=== PATIENT | female | born 1945 | race Caucasian/White ===

== ENCOUNTER 2017-05-14 21:24 | Emergency (ER) | payer OTHER, BC ==
[2017-05-14 21:59] VITALS: TEMP 97.5; BMI 28.2
--- NOTE | 2017-05-14 22:01 | PDOC ---
History of Present Illness - General History Source: Patient Exam Limitations: No Limitations - History of Present Illness Initial Comments: 05/14/17 22:53 The patient is a 71 year old female with no significant PMH who presents to the emergency department with generalized malaise, dizziness, nausea, and abdominal pressure radiating to her chest. The patient reports dizziness when sitting and lying back flat. The patient states she woke up from her sleep with a 10/10 pressure-like abdominal pain that radiates to her chest. The patient states she had left-overs and some rice for dinner. The patient reports her last bowel movement was earlier today. The patient denies chest pain, shortness of breath, headache and dizziness. Denies fever, chills, vomit, diarrhea and constipation. Denies dysuria, frequency, urgency and hematuria. Allergies: Sulfa Past surgical history: appendectomy, cholecystectomy Social history: No reported alcohol, cigarette, or drug use. <Missy Flynn - Last Filed: 05/14/17 23:47> <Sri Turpin - Last Filed: 05/15/17 07:06> - General Chief Complaint: Chest Pain Stated Complaint: STOMACH PROBLEM Time Seen by Provider: 05/14/17 21:59 Past History <Missy Flynn - Last Filed: 05/14/17 23:47> - Past Medical History Anemia: Yes Hypercholesterolemia: Yes Thyroid Disease: Yes (hypothyroid) - Surgical History Appendectomy: Yes (40yrs ago) Cholecystectomy: Yes (18 yrs ago) Orthopedic Surgery: Yes (pins left shoulder/othroscopic surgery right shoulder/ bunions dulce ft) - Suicide/Smoking/Psychosocial Hx Smoking History: Never smoked Hx Alcohol Use: Yes (1 glass wine nightly) Drug/Substance Use Hx: No <rSi Turpin - Last Filed: 05/15/17 07:06> - Past Medical History Allergies/Adverse Reactions: Allergies Allergy/AdvReac Type Severity Reaction Status Date / Time Sulfa (Sulfonamide Allergy Mild Rash Verified 01/27/12 15:26 Antibiotics) Home Medications: Ambulatory Orders Levothyroxine [Synthroid -] 50 mcg PO DAILY 01/27/12 Simvastatin 10 mg PO 01/27/12 Ciprofloxacin [Cipro] 500 mg PO BID #10 tablet 01/31/12 Metronidazole [Flagyl] 500 mg PO TID #28 tablet 01/31/12 Psyllium Seed [Metamucil] 1 each PO TID #0 packet 01/31/12 Meclizine HCl [Antivert -] 25 mg PO QID #28 tablet 05/15/17 Review of Systems - Review of Systems Able to Perform ROS?: Yes Comments:: 05/14/17 22:55 GENERAL/CONSTITUTIONAL: (+) Generalized malaise. No fever or chills. HEAD, EYES, EARS, NOSE AND THROAT: No change in vision. No ear pain or discharge. No sore throat. CARDIOVASCULAR: No chest pain or shortness of breath. RESPIRATORY: No cough, wheezing, or hemoptysis. GASTROINTESTINAL: (+) Abdominal pressure radiating to her chest.(+) Nausea. No vomiting, diarrhea or constipation. GENITOURINARY: No dysuria, frequency, or change in urination. MUSCULOSKELETAL: No joint or muscle swelling or pain. No neck or back pain. SKIN: No rash NEUROLOGIC: (+) Dizzy. No headache, loss of consciousness, or change in strength /sensation. ENDOCRINE: No increased thirst. No abnormal weight change. HEMATOLOGIC/LYMPHATIC: No anemia, easy bleeding, or history of blood clots. ALLERGIC/IMMUNOLOGIC: No hives or skin allergy. <Missy Flynn - Last Filed: 05/14/17 23:47> *Physical Exam - Vital Signs Last Vital Signs Temp Pulse Resp BP Pulse Ox 97.5 F L 84 16 152/85 99 05/14/17 21:56 05/14/17 21:56 05/14/17 21:56 05/14/17 21:56 05/14/17 21:56 - Physical Exam Comments: 05/14/17 22:56 GENERAL: Awake, alert, and fully oriented, in no acute distress HEAD: No signs of trauma EYES: PERRLA, EOMI, sclera anicteric, conjunctiva clear ENT: Auricles normal inspection, hearing grossly normal, nares patent, oropharynx clear without exudates. Moist mucosa NECK: Normal ROM, supple, no lymphadenopathy, JVD, or masses LUNGS: Breath sounds equal, clear to auscultation bilaterally. No wheezes, and no crackles HEART: Regular rate and rhythm, normal S1 and S2, no murmurs, rubs or gallops ABDOMEN: (+) Distended, gurgling. Soft, nontender, normoactive bowel sounds. No guarding, no rebound. No masses EXTREMITIES: Normal range of motion, no edema. No clubbing or cyanosis. No cords , erythema, or tenderness NEUROLOGICAL: Cranial nerves II through XII grossly intact. Normal speech, normal gait SKIN: Warm, Dry, normal turgor, no rashes or lesions noted. <Missy Flynn - Last Filed: 05/14/17 23:47> - Vital Signs Last Vital Signs Temp Pulse Resp BP Pulse Ox 97.5 F L 84 16 152/85 99 05/14/17 21:56 05/14/17 21:56 05/14/17 21:56 05/14/17 21:56 05/14/17 21:56 <Sri Turpin - Last Filed: 05/15/17 07:06> Heart Score/ECG Review #1 05/14/17 23:47 EKG performed at [22:07] demonstrates rate of [79], Sinus rhythm with short FL. Otherwise normal ECG. <Missy Flynn - Last Filed: 05/14/17 23:47> ED Treatment Course - LABORATORY CBC & Chemistry Diagram: 05/14/17 22:28 05/14/17 22:28 - Medications Given in the ED: ED Medications Discontinued Medications Generic Name Dose Route Start Last Admin Trade Name Freq PRN Reason Stop Dose Admin Meclizine HCl 50 mg 05/14/17 22:24 05/14/17 22:41 Antivert - PO 05/14/17 22:25 50 mg ONCE ONE Administration Metoclopramide HCl 10 mg 05/14/17 22:23 05/14/17 22:40 Reglan Injection - IVPUSH 05/14/17 22:24 10 mg ONCE ONE Administration Sodium Chloride 500 ml 05/14/17 22:24 05/14/17 22:41 Normal Saline - IV 05/14/17 22:25 500 ml ONCE ONE Administration <Missy Flynn - Last Filed: 05/14/17 23:47> - LABORATORY CBC & Chemistry Diagram: 05/14/17 22:28 05/14/17 22:28 <Sri Turpin - Last Filed: 05/15/17 07:06> Medical Decision Making - Medical Decision Making 05/14/17 22:35 Pt comes with malaise and nausea and dizziness and looking and feeling unwell. Pt comes with multiple complaints. EKG is NSR. Vitals are normal and she is afebrile. Pt has no vomtiing and no diarrhea. She states that she is bloated. 05/14/17 22:36 Pt will have labs and full workup; I am considering gastroenteritis; cardiac; vertigo; obstruction. 05/15/17 01:30 Pt is feeling better 05/15/17 01:57 Pt's CXR and FUA XR are normal 05/15/17 07:05 UA normal; pt will be sent home with meclizine. She is feeling better. This is likely a viral syndrome <Sri Turpin - Last Filed: 05/15/17 07:06> *DC/Admit/Observation/Transfer - Attestations Scribe Attestion: 05/14/17 22:58 Documentation prepared by Missy Flynn, acting as manager medical affairs for Sri Turpin MD. <Missy Flynn - Last Filed: 05/14/17 23:47> - Discharge Dispostion Admit: No <Sri Turpin - Last Filed: 05/15/17 07:06> Diagnosis at time of Disposition: Viral illness, Vertigo - Discharge Dispostion Disposition: HOME Condition at time of disposition: Improved - Prescriptions Prescriptions: Meclizine HCl [Antivert -] 25 mg PO QID #28 tablet - Patient Instructions Printed Discharge Instructions: Vertigo, DI for Viral Gastroenteritis -- Adult
[2017-05-14] MEDS ORDERED: METOCLOPRAMIDE HCL INJECTION 10 MG/2 ML VIAL IVPUSH ONE (22:23)
[2017-05-14] MEDS ORDERED: MECLIZINE HCL 25 MG TABLET (FP) PO ONE (22:24)
[2017-05-14] MEDS ORDERED: SODIUM CHLORIDE 0.9% 500 ML INFUS.BAG IV ONE (22:24)
[2017-05-14] MEDS ORDERED: METOCLOPRAMIDE HCL INJECTION 10 MG/2 ML VIAL ONE (22:30)
[2017-05-14] MEDS ORDERED: MECLIZINE HCL 25 MG TABLET (FP) ONE (22:30)
[2017-05-14 22:53] LABS: BASO % 0.2 % (0-2.0); EOS # 0.1 # (0-4.5); INR 1.01 (0.82-1.09); LYMPH # 1.9 (8-40); MCH 30.3 pg (25.7-33.7); MCHC 33.8 g/dl (32.0-36.0); MEAN CELL VOLUME 89.6 fl (80-96); MEAN PLT VOLUME 8.1 fl (7.5-11.1); MONO # 0.9 # (3.8-10.2); NEUT # 11.8 # (42.8-82.8); NEUT % 79.8 % (42.8-82.8); PLATELET COUNT 271 K/MM3 (134-434); PROTHROMBIN TIME (PATIENT) 11.4 SEC (9.98-11.88); RDW 12.3 % (11.6-15.6); WHITE BLOOD COUNT 14.7 K/mm3 (4.0-10.0)
[2017-05-14 23:04] LABS: ALBUMIN 4.2 g/dl (3.4-5.0); AMYLASE 53 U/L (25-115); ANION GAP 9 (8-16); CALCIUM 8.6 mg/dL (8.5-10.1); CO2 24 mmol/L (21-32); CREATININE 0.8 mg/dL (0.55-1.02); GLUCOSE,RANDOM 146 mg/dL (74-106); SGOT/AST 21 U/L (15-37); SGPT/ALT 31 U/L (12-78)
[2017-05-14 23:08] LABS: ALK PHOS 90 U/L (45-117); BILIRUBIN,TOTAL 0.6 mg/dL (0.2-1.0); CPK 102 IU/L (26-192); TOT PROT 7.6 g/dl (6.4-8.2); TROPONIN I < 0.02 ng/ml (0.00-0.05)
[2017-05-15 01:53] VITALS: BP 112/62; PULSE 76
[2017-05-15 02:41] LABS: URINE APPEARANCE CLEAR; URINE BILIRUBIN NEGATIVE (NEGATIVE); URINE BLOOD 1+ (NEGATIVE); URINE COLOR YELLOW; URINE GLUCOSE (UA) NEGATIVE (NEGATIVE); URINE KETONE NEGATIVE (NEGATIVE); URINE NITRITE NEGATIVE (NEGATIVE); URINE PROTEIN NEGATIVE (NEGATIVE); URINE UROBILINOGEN NEGATIVE mg/dL (0.2-1.0)
[2017-05-15 02:51] LABS: URINE LEUK ESTERASE 2+ (NEGATIVE)
[2017-05-15 02:55] LABS: URINE MUCUS RARE; URINE RBC 4 /hpf (0-3); URINE WBC 3 /hpf (3-5)
--- NOTE | 2017-05-15 08:31 | PDOC ---
Patient Follow-up (Call Back) - Post ED Follow - Up Condition at time of discharge: Improved Disposition at time of original discharge: HOME Reason for Call Back: Radiology (Received phone call from Dr. Pérez radiologist who notes distended small bowel loops which would which could represent a partial small bowel obstruction versus a small bowel obstruction. He is recommending CT for further evaluation. I have called the patient at home who states did have a normal bowel movement upon arriving back home. I did urge the patient to come in for evaluation. Receive firm call from Dr. Pérez radiologist who notes distended small bowel loops which would which could represent a partial small bowel obstruction versus a small bowel obstruction. He is recommending CT for further evaluation. I have called the patient at home who states did have a normal bowel movement upon arriving back home. I did urge the patient to come in for evaluation.)
[2017-05-15 14:13] LABS: URINE LEUK ESTERASE Negative (NEGATIVE)
--- NOTE | 2017-05-15 17:12 | EKG ---
Test Reason : Blood Pressure : / mmHG Vent. Rate : 079 BPM Atrial Rate : 079 BPM P-R Int : 110 ms QRS Dur : 084 ms QT Int : 400 ms P-R-T Axes : 016 044 064 degrees QTc Int : 458 ms SINUS RHYTHM WITH BORDERLINE SHORT NM OTHERWISE NORMAL ECG WHEN COMPARED WITH ECG OF 31-JAN-2012 08:50, NO SIGNIFICANT CHANGE WAS FOUND Confirmed by DANIEL ORDONEZ MD ([id number]) on 05/15/2017 5:12:31 PM Referred By: Confirmed By:DANIEL ORDONEZ MD
== END 2017-05-15 02:58 | disposition home or self-care (01) ==
LOC: JER 21:24
PROC: 3E033GC Introduction of Other Therapeutic Substance into Peripheral Vein, Percutaneous Approach (ICD-10-PCS; principal; 2017-05-14)
DX: A08.4 Viral intestinal infection, unspecified (principal); B97.89 Other viral agents as the cause of diseases classified elsewhere; R42 Dizziness and giddiness; D64.9 Anemia, unspecified; E03.9 Hypothyroidism, unspecified; E78.00 Pure hypercholesterolemia, unspecified
CPT/HCPCS: 36415; 71020-TC; 74020-TC; 80053; 81003; 81015; 82150; 82550; 83690; 84443; 84484; 85025; 85610; 93005; 93010; 99283-25

== ENCOUNTER 2017-05-15 10:10 | Observation (INO) | payer OTHER, BC ==
[2017-05-15 10:18] VITALS: BMI 28.0
--- NOTE | 2017-05-15 11:05 | PDOC ---
Attending Attestation - Resident Resident Name: Alejandro Vázquez - ED Attending Attestation I have performed the following: I have examined & evaluated the patient, The case was reviewed & discussed with the resident, I agree w/resident's findings & plan, Exceptions are as noted - HPI HPI: 05/15/17 11:03 71-year-old female with no severe past medical history, past surgical history significant for partial hysterectomy and cholecystectomy presents for revisit for further imaging of abdominal pain. Patient symptoms began with abdominal pain and vomiting last night, was evaluated and noted to have white count of 14.7, x-ray preliminarily read as normal, the patient was feeling better and went home. X-ray reread by radiology as distended loops which could be consistent with small bowel obstruction, patient was called and was not necessarily feeling better and urged to return to the emergency department. The patient did have a normal bowel movement around 3:30 AM, reports some persistent abdominal pain. - Physicial Exam PE: 05/15/17 11:04 Afebrile, vital signs stable. No jaundice or pallor Abdomen is soft and nondistended. Tender with guarding in the left abdomen radiating to the epigastric region, there is rebound that radiates to the left abdomen. Bowel sounds are normal to decreased. - Medical Decision Making 05/15/17 11:05 Patient seen and evaluated with the resident. I agree with the overall evaluation, assessment, and management with the following summary of visit: 71-year-old female with history of abdominal surgeries presents with abdominal pain and vomiting, localizing findings with some peritonitis in the left abdomen. Question colitis versus diverticulitis, rule out obstruction. Repeat labs, trend white count Declines pain control IV fluids CT of the abdomen and pelvis with contrast Reassess
--- NOTE | 2017-05-15 11:14 | PDOC ---
History of Present Illness <Lora Mason - Last Filed: 05/15/17 14:41> - General History Source: Patient Exam Limitations: No Limitations - History of Present Illness Initial Comments: 05/15/17 11:07 The patient is a 71F with a PMH of diverticula complicated by diverticulitis 6 years ago, HLD, hypothyroidism, who presents to the ER after having a flat/ upright abdominal XR read as possible SBO. She is here for a CT scan for more definitive findings. She is complaining of abdominal pain but denies any other pain including CP, SOB, nausea, vomiting, diarrhea, constipation. <Alejandro Vázquez - Last Filed: 05/15/17 15:11> - General Chief Complaint: Pain Stated Complaint: ABD PAIN Time Seen by Provider: 05/15/17 10:30 Past History <Lora Mason - Last Filed: 05/15/17 14:41> - Past Medical History Anemia: Yes COPD: No Hypercholesterolemia: Yes Thyroid Disease: Yes (hypothyroid) - Surgical History Appendectomy: Yes (40yrs ago) Cholecystectomy: Yes (18 yrs ago) Orthopedic Surgery: Yes (pins left shoulder/othroscopic surgery right shoulder/ bunions dulce ft) - Suicide/Smoking/Psychosocial Hx Smoking History: Never smoked Have you smoked in the past 12 months: No Information on smoking cessation initiated: No Hx Alcohol Use: No Drug/Substance Use Hx: No <Alejandro Vázquez - Last Filed: 05/15/17 15:11> - Past Medical History Allergies/Adverse Reactions: Allergies Allergy/AdvReac Type Severity Reaction Status Date / Time Sulfa (Sulfonamide Allergy Mild Rash Verified 05/15/17 10:16 Antibiotics) Home Medications: Ambulatory Orders Levothyroxine [Synthroid -] 50 mcg PO DAILY 01/27/12 Simvastatin 20 mg PO DAILY 01/27/12 Psyllium Seed [Metamucil] 1 each PO TID #0 packet 01/31/12 Naproxen 500 mg PO BID 05/15/17 Review of Systems - Review of Systems Able to Perform ROS?: Yes Comments:: 05/15/17 11:10 GENERAL/CONSTITUTIONAL: No fever or chills. No weakness. HEAD, EYES, EARS, NOSE AND THROAT: No change in vision. No ear pain or discharge. No sore throat. GASTROINTESTINAL: Positive for abdominal pain. No nausea, vomiting, diarrhea, or constipation. GENITOURINARY: No dysuria, frequency, hematuria, or change in urination. CARDIOVASCULAR: No chest pain, palpitations, or lightheadedness. RESPIRATORY: No cough, wheezing, shortness of breath, or hemoptysis. MUSCULOSKELETAL: No joint or muscle swelling or pain. No neck or back pain. SKIN: No rash or lesions. NEUROLOGIC: No headache, numbness, tingling, weakness, loss of consciousness, or change in strength/sensation. ENDOCRINE: No increased thirst. No abnormal weight change. HEMATOLOGIC/LYMPHATIC: No anemia, easy bleeding, or history of blood clots. ALLERGIC/IMMUNOLOGIC: No hives or skin allergy. Is the patient limited Indonesian proficient: No <Alejandro Vázquez - Last Filed: 05/15/17 15:11> *Physical Exam - Vital Signs Last Vital Signs Temp Pulse Resp BP Pulse Ox 97.5 F L 76 18 134/72 100 05/15/17 10:15 05/15/17 10:15 05/15/17 10:15 05/15/17 10:15 05/15/17 10:15 <Lora Mason - Last Filed: 05/15/17 14:41> - Vital Signs Last Vital Signs Temp Pulse Resp BP Pulse Ox 97.5 F L 76 18 134/72 100 05/15/17 10:15 05/15/17 10:15 05/15/17 10:15 05/15/17 10:15 05/15/17 10:15 - Physical Exam Comments: 05/15/17 11:11 GENERAL: Well developed, well nourished. Awake and alert. No acute distress. HEENT: Normocephalic, atraumatic. Hearing grossly normal. Moist mucous membranes. PERRLA, EOMI. No conjunctival pallor. Sclera are non-icteric. Oropharynx is clear. NECK: Supple. Full ROM. No JVD. Carotid pulses 2+ and symmetric, without bruits. No thyromegaly. No lymphadenopathy. CARDIOVASCULAR: Regular rate and rhythm. No murmurs, rubs, or gallops. Distal pulses are 2+ and symmetric. PULMONARY: No evidence of respiratory distress. Lungs clear to auscultation bilaterally. No wheezing, rales or rhonchi. ABDOMINAL: Tenderness to palpation in epigastric region, and diffusely in lower quadrants. Soft. Non-distended. No rebound or guarding. No organomegaly. GENITOURINARY: No CVA tenderness bilaterally. MUSCULOSKELETAL: Normal range of motion at all joints. No bony deformities or tenderness. EXTREMITIES: No cyanosis. No clubbing. No edema. No calf tenderness. SKIN: Warm and dry. Normal capillary refill. No rashes. No jaundice. NEUROLOGICAL: Alert, awake, appropriate. Cranial nerves 2-12 intact. Normal speech. PSYCHIATRIC: Cooperative. Good eye contact. Appropriate mood and affect. <Alejandro Vázquez - Last Filed: 05/15/17 15:11> ED Treatment Course - LABORATORY CBC & Chemistry Diagram: 05/15/17 11:10 05/15/17 11:20 - ADDITIONAL ORDERS Additional order review: Laboratory Results 05/15/17 11:20 Sodium 141 Potassium 4.3 D Chloride 107 Carbon Dioxide 26 Anion Gap 8 BUN 18 Creatinine 0.6 D Creat Clearance w eGFR > 60 Random Glucose 105 D Calcium 8.6 Total Bilirubin 0.5 AST 17 ALT 30 Alkaline Phosphatase 82 Total Protein 6.9 Albumin 3.8 Lipase 175 05/15/17 11:10 RBC 4.43 MCV 90.1 MCHC 32.9 RDW 12.4 MPV 7.8 Neutrophils % 64.5 Lymphocytes % 27.3 D Monocytes % 6.3 Eosinophils % 1.5 Basophils % 0.4 - Medications Given in the ED: ED Medications Discontinued Medications Generic Name Dose Route Start Last Admin Trade Name Freq PRN Reason Stop Dose Admin Sodium Chloride 1,000 ml 05/15/17 11:21 05/15/17 11:32 Normal Saline - IV 05/15/17 11:22 1,000 ml ONCE ONE Administration <Lora Mason - Last Filed: 05/15/17 14:41> - LABORATORY CBC & Chemistry Diagram: 05/15/17 11:10 05/15/17 11:20 - RADIOLOGY Radiology Studies Ordered: Category Date Time Status ABDOMEN & PELVIS CT WITH CONTR [CT] Stat CT Scan 05/15/17 11:03 Ordered <Alejandro Vázquez - Last Filed: 05/15/17 15:11> Medical Decision Making - Medical Decision Making 05/15/17 14:41 Dr. Pradeep Brooks was paged and notified via phone service. <Lora Mason - Last Filed: 05/15/17 14:41> - Medical Decision Making 05/15/17 13:59 The patient is a 71F with no PMH who presents to the ED for f/u on abd XR. CT shows: In the left lower quadrant there is mild distention of the proximal jejunum. This extends through the mid jejunum and on image #114 of the axial images there is moderate mural thickening of the mid jejunum and in this level there is either thickened evga or mass or even partial intussusception. There is no evidence of complete small bowel obstruction but a partial or early small bowel obstruction should be considered An inflammatory or infectious etiology can mimic this finding. Patient states she is feeling better and passing gas. Will add GI referral. 05/15/17 14:05 CT scan results discussed with attending and patients. Will admit patient to inpatient unit for GI consultation and workup. 05/15/17 15:11 Patient signed out to Dr. Fallon, hospitalist service. <Alejandro Vázquez - Last Filed: 05/15/17 15:11> *DC/Admit/Observation/Transfer <Lora Mason - Last Filed: 05/15/17 14:41> - Discharge Dispostion Admit: Yes <Alejandro Vázquez - Last Filed: 05/15/17 15:11> Diagnosis at time of Disposition: Small bowel obstruction due to adhesions - Discharge Dispostion Condition at time of disposition: Stable
[2017-05-15] MEDS ORDERED: SODIUM CHLORIDE 0.9% 1000 ML INFUS.BAG IV ONE (11:21)
[2017-05-15 11:42] LABS: BASO % 0.4 % (0-2.0); EOS # 0.1 # (0-4.5); EOS % 1.5 % (0-4.5); LYMPH # 2.3 (8-40); MCH 29.6 pg (25.7-33.7); MCHC 32.9 g/dl (32.0-36.0); MEAN CELL VOLUME 90.1 fl (80-96); MEAN PLT VOLUME 7.8 fl (7.5-11.1); MONO # 0.5 # (3.8-10.2); NEUT # 5.4 # (42.8-82.8); NEUT % 64.5 % (42.8-82.8); PLATELET COUNT 252 K/MM3 (134-434); RDW 12.4 % (11.6-15.6); WHITE BLOOD COUNT 8.3 K/mm3 (4.0-10.0)
[2017-05-15 12:07] LABS: ALBUMIN 3.8 g/dl (3.4-5.0); ALK PHOS 82 U/L (45-117); ANION GAP 8 (8-16); BILIRUBIN,TOTAL 0.5 mg/dL (0.2-1.0); CALCIUM 8.6 mg/dL (8.5-10.1); CO2 26 mmol/L (21-32); CREATININE 0.6 mg/dL (0.55-1.02); GLUCOSE,RANDOM 105 mg/dL (74-106); SGOT/AST 17 U/L (15-37); SGPT/ALT 30 U/L (12-78); TOT PROT 6.9 g/dl (6.4-8.2)
--- NOTE | 2017-05-15 15:06 | HP ---
CHIEF COMPLAINT: PCP: Dr. Brooks HISTORY OF PRESENT ILLNESS: Patient is a 71 year old female returned to the ED after she was asked to come back for evaluation of the abdominal pain with abdominal CT. Patient visited ED yesterday for abdominal pain and vertigo. She was discharged home from the ED after workup and treatment with Meclizine for dizziness. Today , radiologist (Dr. Pérez) called the ED physician mentioning that distended small bowel loops was noted on abdominal x-ray which could represent a partial small bowel obstruction versus a small bowel obstruction. Hence, patient was asked to come back to the ED for Abdominal CT and further evaluation. Patient mentions that she still has abdominal pain mostly located in the LLQ, cramping in nature, 5-6/10 in intensity, non radiating, associated with nausea but no vomiting. After she returned home from ED last night, she moved her bowel once. Has been passing flatus. Denies chest pain, sob, cough, palpitation, fever, chills, rigors, sweating. Bladder habit normal. Sleep/Appetite normal prior the illness. Last colonoscopy 4 years ago. Next colonoscopy to be done in May, 2017, as per her GI. ER course was notable for: (1) Afebrile, hemodynamically stable, no leukocytosis. (2) Abdominal/Pelvis CT: ? early/partial SBO vs intussuception (3) IV fluids Recent Travel: None PAST MEDICAL HISTORY: Hyperlipidemia, Hypothyroidism, diverticulitis PAST SURGICAL HISTORY: Appendectomy, cholecystectomy, partial hysterectomy, bladder sling. Social History: Smoking: Denies Alcohol: Drinks 1 glass of wine daily Drugs: Denies Family History: Mother of gallbladder carcinoma. Allergies Sulfa (Sulfonamide Antibiotics) Allergy (Mild, Verified 05/15/17 10:16) Rash HOME MEDICATIONS: Home Medications Medication Instructions Recorded Levothyroxine [Synthroid -] 50 mcg PO DAILY 01/27/12 Simvastatin 20 mg PO DAILY 01/27/12 Psyllium Seed [Metamucil] 1 each PO TID #0 packet 01/31/12 Naproxen 500 mg PO BID 05/15/17 REVIEW OF SYSTEMS CONSTITUTIONAL: Absent: fever, chills, diaphoresis, generalized weakness, malaise, loss of appetite, weight change HEENT: Absent: rhinorrhea, nasal congestion, throat pain, throat swelling, difficulty swallowing, mouth swelling, ear pain, eye pain, visual changes CARDIOVASCULAR: Absent: chest pain, syncope, palpitations, irregular heart rate, lightheadedness , peripheral edema RESPIRATORY: Absent: cough, shortness of breath, dyspnea with exertion, orthopnea, wheezing, stridor, hemoptysis GASTROINTESTINAL: Present: abdominal pain, nausea Absent: abdominal distension, vomiting, diarrhea, constipation, melena, hematochezia GENITOURINARY: Absent: dysuria, frequency, urgency, hesitancy, hematuria, flank pain, genital pain MUSCULOSKELETAL: Absent: myalgia, arthralgia, joint swelling, back pain, neck pain SKIN: Absent: rash, itching, pallor HEMATOLOGIC/IMMUNOLOGIC: Absent: easy bleeding, easy bruising, lymphadenopathy, frequent infections ENDOCRINE: Absent: unexplained weight gain, unexplained weight loss, heat intolerance, cold intolerance NEUROLOGIC: Absent: headache, focal weakness or paresthesias, dizziness, unsteady gait, seizure, mental status changes, bladder or bowel incontinence PSYCHIATRIC: Absent: anxiety, depression, suicidal or homicidal ideation, hallucinations. PHYSICAL EXAMINATION Vital Signs - 24 hr 05/15/17 10:15 Temperature 97.5 F L Pulse Rate 76 Respiratory 18 Rate Blood Pressure 134/72 O2 Sat by Pulse 100 Oximetry (%) GENERAL: Elderly female, Awake, alert, and fully oriented, in no acute distress. HEAD: Normal with no signs of trauma. EYES: EOM intact, no pallor or icterus. EARS, NOSE, THROAT: Ears normal. Moist mucous membranes. NECK: Supple. LUNGS: B/L Breath sounds equal, clear to auscultation bilaterally. No wheezes, and no crackles. No accessory muscle use. HEART: Tachycardic, Regular rate and rhythm, normal S1 and S2 without murmur. ABDOMEN: Soft, tenderness in LLQ, not distended, hypoactive bowel sounds, no guarding, no rebound, no masses. No hepatomegaly or splenomegaly. MUSCULOSKELETAL: Normal range of motion at all joints. No bony deformities or tenderness. No CVA tenderness. UPPER EXTREMITIES: 2+ pulses, warm, well-perfused. No cyanosis. No clubbing. No peripheral edema. LOWER EXTREMITIES: 2+ pulses, warm, well-perfused. No calf tenderness. No peripheral edema. NEUROLOGICAL: No facial droop. Normal speech. Gait not observed. PSYCHIATRIC: Cooperative. Good eye contact. Appropriate mood and affect. SKIN: Warm, dry, normal turgor, no rashes or lesions noted, normal capillary refill. Laboratory Results - last 24 hr 05/15/17 05/15/17 11:10 11:20 WBC 8.3 D RBC 4.43 Hgb 13.1 Hct 39.9 MCV 90.1 MCH 29.6 MCHC 32.9 RDW 12.4 Plt Count 252 MPV 7.8 Neutrophils % 64.5 Lymphocytes % 27.3 D Monocytes % 6.3 Eosinophils % 1.5 Basophils % 0.4 Sodium 141 Potassium 4.3 D Chloride 107 Carbon Dioxide 26 Anion Gap 8 BUN 18 Creatinine 0.6 D Creat Clearance w eGFR > 60 Random Glucose 105 D Calcium 8.6 Total Bilirubin 0.5 AST 17 ALT 30 Alkaline Phosphatase 82 Total Protein 6.9 [address] abdomen/Pelvis: There are no fluid collections in the abdomen or pelvis. In the left lower quadrant there is mild distention of the proximal jejunum. This extends through the mid jejunum and on image #114 of the axial images there is moderate mural thickening of the mid jejunum and in this level there is either thickened vega or mass or even partial intussusception. There is no evidence of complete small bowel obstruction but a partial or early small bowel obstruction should be considered ASSESSMENT/PLAN: Patient is an 71 year old female with significant past medical history of Hyperlipidemia, Hypothyroidism, diverticulitis returned to the ED after she was asked to come back for evaluation of the abdominal pain with abdominal CT. # Abdominal pain-r/o SBO c/o LLQ pain, associated with nausea. CT abdomen showed questionable partial intussusception vs partial or early small bowel obstruction. Admitted in Med-Surg/Observation NPO IV NS @ 83mls/hr IV Morphine 1mg Q6H PRN. Afebrile, no leukocytosis so no antibiotics indicated at this time Patient is passing flatus, moved her bowel, abdomen is soft, so NG tube is not placed. KUB in am. GI consult requested. # Hypothyroidism TSH-4.37, Free T3 and Free T4 pending Continue Levothyroxine 50 mcg # Hyperlipidemia Hold Simvastatin. # FEN IV NS @ 83mls.hr Electrolytes WNL NPO except meds # Prophylaxis For GI: not indicated For DVT: On Heparin 5000 IU sq TID # Code Status: Full Code # Dispo: Duration of stay likely 1-2 days. PT eval before discharge. Illness, Investigation and Plan of care explained to the patient and her son. They verbalized understanding. Case seen and discussed with Dr. Layne and Territory Sales Manager Medical. Visit type - Emergency Visit Emergency Visit: Yes ED Registration Date: 05/15/17 Care time: The patient presented to the Emergency Department on the above date and was hospitalized for further evaluation of their emergent condition. - New Patient This patient is new to me today: Yes Date on this admission: 05/15/17 - Critical Care Critical Care patient: No
--- NOTE | 2017-05-15 16:22 | HP ---
CHIEF COMPLAINT: nausea, abdominal pain PCP: Dr. Pradeep Brooks HISTORY OF PRESENT ILLNESS: 71yo woman with PMH of diverticulitis, HLD, hypothyrodism, and multiple abdominal surgeries who presents with acute onset nausea and abdominal pain x1day. She presented last night to the ED with c/o abdominal pain and vertigo. She was given meclizine which improved her dizziness. She was noted to have WBC to 14.7 and KUB was preliminarily read as normal, and she was sent home. KUB was re-read with possible distended bowel loops suggestive of possible SBO. Pt was called to return to the ED for further imaging since she was not back to her baseline health. She had a normal BM around 3:30AM after being discharged, and ate some crackers this morning. No further episodes of nausea or vomiting, but continues to have periumbilical and Left-sided abdominal pain. No prior histories of SBOs. Last colonoscopy around 4 years ago, which she reports was normal. Denies dysuria, melena, or hematochezia. No chest pain, fever, or chills. ER course notable for: (1) CT A/P with contrast revealed jejunal mural thickening, possible partial intussception vs early partial SBO Recent Travel: No PAST MEDICAL HISTORY: -diverticulitis - hospitalized 5 years ago -HLD -hypothyroidism PAST SURGICAL HISTORY: cholecystectomy, appendectomy, partial hysterectomy, urethral sling Social History: Smoking: never Alcohol: 1 glass of wine with dinner Drugs: none Family History: mom - "gallbladder cancer" suspect cholangiocarcinoma Allergies: Sulfa (Sulfonamide Antibiotics) Allergy (Mild, Verified 05/15/17 10: 16) --> Rash HOME MEDICATIONS: Home Medications Medication Instructions Recorded Levothyroxine [Synthroid -] 50 mcg PO DAILY 01/27/12 Simvastatin 20 mg PO DAILY 01/27/12 Psyllium Seed [Metamucil] 1 each PO TID #0 packet 01/31/12 Naproxen 500 mg PO BID PRN 05/15/17 REVIEW OF SYSTEMS CONSTITUTIONAL: Absent: fever, chills, diaphoresis, generalized weakness, malaise, loss of appetite, weight change HEENT: Absent: rhinorrhea, nasal congestion, throat pain, throat swelling, difficulty swallowing, mouth swelling, ear pain, eye pain, visual changes CARDIOVASCULAR: Absent: chest pain, syncope, palpitations, irregular heart rate, lightheadedness , peripheral edema RESPIRATORY: Absent: cough, shortness of breath, dyspnea with exertion, orthopnea, wheezing, stridor, hemoptysis GASTROINTESTINAL: +abdominal pain, +nausea Absent: abdominal distension, vomiting, diarrhea, constipation, melena, hematochezia GENITOURINARY: Absent: dysuria, frequency, urgency, hesitancy, hematuria, flank pain, genital pain MUSCULOSKELETAL: Absent: myalgia, arthralgia, joint swelling, back pain, neck pain SKIN: Absent: rash, itching, pallor HEMATOLOGIC/IMMUNOLOGIC: Absent: easy bleeding, easy bruising, lymphadenopathy, frequent infections ENDOCRINE: Absent: unexplained weight gain, unexplained weight loss, heat intolerance, cold intolerance NEUROLOGIC: Absent: headache, focal weakness or paresthesias, dizziness, unsteady gait, seizure, mental status changes, bladder or bowel incontinence PSYCHIATRIC: Absent: anxiety, depression, suicidal or homicidal ideation, hallucinations. PHYSICAL EXAMINATION Vital Signs - 24 hr 05/15/17 10:15 Temperature 97.5 F L Pulse Rate 76 Respiratory 18 Rate Blood Pressure 134/72 O2 Sat by Pulse 100 Oximetry (%) GENERAL: lying comfortably in bed, nad, aaox3 EYES: extraocular movements intact, sclera anicteric, conjunctiva clear EARS, NOSE, THROAT: Moist mucous membranes NECK: supple, no cervical LAD LUNGS: CTAB, no wheezes, rales, or rhonchi HEART: rrr, normal s1/s2, no m/r/g ABDOMEN: Soft, non-distended, ttp with guarding in periumbilical + LLQ, + hypoactive BS in LLQ : no suprapubic tenderness UPPER EXTREMITIES: 2+ radial pulses, wwp, no cyanosis/clubbing/peripheral edema LOWER EXTREMITIES: 2+ DP pulses, wwp, no edema NEUROLOGICAL: CN II-XII intact. Normal speech CBC, BMP 05/15/17 11:10 05/15/17 11:20 Hepatic Panel Total Bilirubin 0.5 mg/dL (0.2-1.0) 05/15/17 11:20 AST 17 U/L (15-37) 05/15/17 11:20 ALT 30 U/L (12-78) 05/15/17 11:20 Alkaline Phosphatase 82 U/L (45-117) 05/15/17 11:20 Albumin 3.8 g/dl (3.4-5.0) 05/15/17 11:20 05/15/17 11:20 Lipase 175 IMAGING: CT A/P w/ PO/IV contrast 05/15/17: COMPARISON: 07/09/2016 FINDINGS: The liver, spleen, adrenal glands and pancreas are unremarkable. Status post cholecystectomy. There is no hydronephrosis, renal masses or renal calculi. There is no retroperitoneal lymphadenopathy. There is no abdominal aortic aneurysm. The appendix is not identified. However there are no inflammatory changes in the right lower quadrant. There is extensive sigmoid diverticulosis but no evidence of acute diverticulitis. There are no fluid collections in the abdomen or pelvis. In the left lower quadrant there is mild distention of the proximal jejunum. This extends through the mid jejunum and on image #114 of the axial images there is moderate mural thickening of the mid jejunum and in this level there is either thickened vega or mass or even partial intussusception. There is no evidence of complete small bowel obstruction but a partial or early small bowel obstruction should be considered. An inflammatory or infectious etiology can mimic this finding. The uterus is absent. The urinary bladder is unremarkable. IMPRESSION: Abnormal small bowel left lower quadrant as described. Recommend surgical or GI consultation. Recommend follow-up evaluation of the small bowel of left lower quadrant. Can't exclude partial or early small bowel obstruction with etiologies as noted above KUB 05/15/17: Imaging reveals retained stool in the colon, degenerative changes, right upper quadrant clips and no sign of free air, organomegaly or calcifications of significance. There are some air distended loops of small bowel which could represent an developing small bowel or partial small bowel obstruction. The lung bases appear well aerated. For more complete evaluation, further imaging with CT may be of help. CXR 05/15/17: No focal consolidations, pleural effusions or pneumothorax Active Medications Heparin Sodium (Porcine) (Heparin -) 5,000 unit SQ TID [facility] Last Admin: 05/15/17 17:10 Dose: 5,000 unit Sodium Chloride (Normal Saline -) 1,000 mls @ 83 mls/hr IV ASDIR CRISTOPHER Last Admin: 05/15/17 17:10 Dose: 83 mls/hr Levothyroxine Sodium (Synthroid -) 50 mcg PO DAILY@0700 [facility] Morphine Sulfate (Morphine Sulfate) 1 mg IVPUSH Q6H PRN PRN Reason: PAIN ASSESSMENT/PLAN: 71yo woman with PMH of diverticulitis and multiple abdominal surgeries who presents with acute onset abdominal pain and nausea with imaging revealing possible early SBO. Patient will be admitted for further observation and placed on bowel rest. #r/o SBO -Surgery consulted -NPO -IVF -Pain meds -Serial abdominal exams and repeat KUB in AM #HLD - hold simvastatin #hypothyroidism - continue home synthroid 50mcg daily #DVT PPX - Heparin SQ TID #FEN: NS@83cc/hr / lytes wnl / NPO #Dispo: m/s Obs FULL code d/w Dr. Roverto Moss MD PGY1 - Internal Medicine Visit type - Emergency Visit Emergency Visit: Yes ED Registration Date: 05/15/17 Care time: The patient presented to the Emergency Department on the above date and was hospitalized for further evaluation of their emergent condition. - New Patient This patient is new to me today: Yes Date on this admission: 05/15/17 - Critical Care Critical Care patient: No
[2017-05-15] MEDS ORDERED: HEPARIN NA (PORCINE) 5,000 UNITS/ML 1ML VIAL ONE (16:58)
[2017-05-15] MEDS: HEPARIN NA (PORCINE) 5,000 UNITS/ML 1ML VIAL SQ SCH ×2 (17:10→21:15)
[2017-05-15] MEDS: SODIUM CHLORIDE 1,000 ML IV SCH (17:10)
--- NOTE | 2017-05-15 17:13 | PN ---
Teaching Attending Note Name of Resident: Lorie Moss ATTENDING PHYSICIAN STATEMENT I saw and evaluated the patient. I reviewed the resident's note and discussed the case with the resident. I agree with the resident's findings and plan as documented. SUBJECTIVE: Patient is c/o having abdominal pain. No fever or chills, no shortness of breath. OBJECTIVE: Vital Signs Temperature 97.5 F L 05/15/17 10:15 Pulse Rate 76 05/15/17 10:15 Respiratory Rate 18 05/15/17 10:15 Blood Pressure 134/72 05/15/17 10:15 O2 Sat by Pulse Oximetry (%) 100 05/15/17 10:15 CBCD WBC 8.3 K/mm3 (4.0-10.0) D 05/15/17 11:10 RBC 4.43 M/mm3 (3.60-5.2) 05/15/17 11:10 Hgb 13.1 GM/dL (10.7-15.3) 05/15/17 11:10 Hct 39.9 % (32.4-45.2) 05/15/17 11:10 MCV 90.1 fl (80-96) 05/15/17 11:10 MCHC 32.9 g/dl (32.0-36.0) 05/15/17 11:10 RDW 12.4 % (11.6-15.6) 05/15/17 11:10 Plt Count 252 K/MM3 (134-434) 05/15/17 11:10 MPV 7.8 fl (7.5-11.1) 05/15/17 11:10 CMP Sodium 141 mmol/L (136-145) 05/15/17 11:20 Potassium 4.3 mmol/L (3.5-5.1) D 05/15/17 11:20 Chloride 107 mmol/L (98-107) 05/15/17 11:20 Carbon Dioxide 26 mmol/L (21-32) 05/15/17 11:20 Anion Gap 8 (8-16) 05/15/17 11:20 BUN 18 mg/dL (7-18) 05/15/17 11:20 Creatinine 0.6 mg/dL (0.55-1.02) D 05/15/17 11:20 Creat Clearance w eGFR > 60 (>60) 05/15/17 11:20 Random Glucose 105 mg/dL (74-106) D 05/15/17 11:20 Calcium 8.6 mg/dL (8.5-10.1) 05/15/17 11:20 Total Bilirubin 0.5 mg/dL (0.2-1.0) 05/15/17 11:20 AST 17 U/L (15-37) 05/15/17 11:20 ALT 30 U/L (12-78) 05/15/17 11:20 Alkaline Phosphatase 82 U/L (45-117) 05/15/17 11:20 Total Protein 6.9 g/dl (6.4-8.2) 05/15/17 11:20 Albumin 3.8 g/dl (3.4-5.0) 05/15/17 11:20 Current Medications Generic Name Dose Route Start Last Admin Trade Name Freq PRN Reason Stop Dose Admin Heparin Sodium (Porcine) 5,000 unit 05/15/17 15:30 05/15/17 17:10 Heparin - SQ 5,000 unit TID CRISTOPHER Administration Sodium Chloride 1,000 mls @ 83 mls/hr 05/15/17 15:30 05/15/17 17:10 Normal Saline - IV 83 mls/hr ASDIR CRISTOPHER Administration PE: positive for abdominal pain rest of PE per resident's note ASSESSMENT AND PLAN: Patient is a 71yo woman with PMH of diverticulitis and multiple abdominal surgeries who presents with acute onset abdominal pain and nausea. Xray reporting possible early SBO. Patient will be admitted for further observation and placed on bowel rest. # Acute abdominalv pain r/o SBO , surgical consult, NPO, IVF, morphine 1mg q6h prn pain, repeat KUB in am, Hold Naprosyn for now given to the patient for pain. #hypothyroidism continue synthroid 50mcg daily #Hx of HLD ,hold simvastatin for now continue upon discharge # HX OF RIGHT HIP PAIN WAS taking Naprosyn , will discontinue for now, since can irritate the GI system. #DVT PPX - Heparin SQ TID
[2017-05-15] MEDS ORDERED: morphine CARPU-JECT 8 MG/1 ML DISP.SYRIN IVPUSH PRN (17:23)
[2017-05-15] MEDS ORDERED: ATORVASTATIN CA 10 MG TABLET (FP) PO SCH (22:00)
[2017-05-16] MEDS: HEPARIN NA (PORCINE) 5,000 UNITS/ML 1ML VIAL SQ SCH ×3 (06:46→21:13)
[2017-05-16] MEDS: LEVOTHYROXINE NA 50 MCG TABLET (FP) PO SCH (06:46)
[2017-05-16 07:34] LABS: BASO % 0.8 % (0-2.0); EOS # 0.1 # (0-4.5); EOS % 2.4 % (0-4.5); LYMPH # 2.5 (8-40); MCH 29.9 pg (25.7-33.7); MCHC 33.1 g/dl (32.0-36.0); MEAN CELL VOLUME 90.4 fl (80-96); MONO # 0.3 # (3.8-10.2); NEUT # 1.7 # (42.8-82.8); PLATELET COUNT 210 K/MM3 (134-434); RDW 12.6 % (11.6-15.6); WHITE BLOOD COUNT 4.6 K/mm3 (4.0-10.0)
[2017-05-16 07:58] LABS: ANION GAP 8 (8-16); BILIRUBIN,TOTAL 0.6 mg/dL (0.2-1.0); CALCIUM 7.8 mg/dL (8.5-10.1); CO2 25 mmol/L (21-32); CREATININE 0.5 mg/dL (0.55-1.02); GLUCOSE,RANDOM 77 mg/dL (74-106); SGOT/AST 13 U/L (15-37); SGPT/ALT 24 U/L (12-78)
[2017-05-16 08:02] LABS: ALK PHOS 67 U/L (45-117); TOT PROT 5.6 g/dl (6.4-8.2)
--- NOTE | 2017-05-16 10:59 | CONSULT ---
- Consultation REQUESTING PROVIDER: Roverto CONSULT REQUEST: We have been asked to surgically evaluate this patient for abdominal pain PCP:Arelis Layne HISTORY OF PRESENT ILLNESS: 71 y/o female presented to the ER 05/13/17 w/ abdominal pain and nausea and vomiting; she was txed and released and called back; CT scan of the a/p was done and patient was admitted with possible sbo; since admission she states she is better; passed some flatus today; no further nausea and/or vomiting; pain initially was diffuse and crampy. PMHx: thyroid disease; hyperlipidemia PSHx: appendectomy; lap flavio; JC Home Medications Medication Instructions Recorded Levothyroxine [Synthroid -] 50 mcg PO DAILY 01/27/12 Simvastatin 20 mg PO DAILY 01/27/12 Psyllium Seed [Metamucil] 1 each PO TID #0 packet 01/31/12 Naproxen 500 mg PO BID PRN 05/15/17 Allergies Allergy/AdvReac Type Severity Reaction Status Date / Time Sulfa (Sulfonamide Allergy Mild Rash Verified 05/15/17 10:16 Antibiotics) PHYSICAL EXAM: GENERAL: Awake, alert, and fully oriented, in no acute distress. HEAD: Normal with no signs of trauma. EYES: sclera anicteric, conjunctiva clear. NECK: Normal ROM, supple without lymphadenopathy, JVD, or masses. ABDOMEN: Soft, nontender, not distended, normoactive bowel sounds, no guarding, no rebound, no masses. No organomegaly. Healed scars; no hernias MUSCULOSKELETAL: Normal ROM at all joints. No bony deformities or tenderness. No CVA tenderness. UPPER EXTREMITIES: 2+ pulses, warm, well-perfused. No cyanosis. Cap refill <2 seconds. No peripheral edema. LOWER EXTREMITIES: 2+ pulses, warm, well-perfused. No calf tenderness. No peripheral edema. NEUROLOGICAL: Normal speech, gait not observed. PSYCH: Cooperative. Good eye contact. Appropriate mood and affect. SKIN: Warm, dry, normal turgor, no rashes or lesions noted. Vital Signs Temperature 97.8 F 05/16/17 06:15 Pulse Rate 108 H 05/16/17 06:15 Respiratory Rate 18 05/16/17 06:15 Blood Pressure 155/77 05/16/17 06:15 O2 Sat by Pulse Oximetry (%) 97 05/16/17 08:00 Lab Results WBC 4.6 K/mm3 (4.0-10.0) D 05/16/17 06:00 RBC 3.90 M/mm3 (3.60-5.2) 05/16/17 06:00 Hgb 11.7 GM/dL (10.7-15.3) D 05/16/17 06:00 Hct 35.3 % (32.4-45.2) 05/16/17 06:00 MCV 90.4 fl (80-96) 05/16/17 06:00 MCHC 33.1 g/dl (32.0-36.0) 05/16/17 06:00 RDW 12.6 % (11.6-15.6) 05/16/17 06:00 Plt Count 210 K/MM3 (134-434) 05/16/17 06:00 Sodium 144 mmol/L (136-145) 05/16/17 06:00 Potassium 3.6 mmol/L (3.5-5.1) 05/16/17 06:00 Chloride 111 mmol/L (98-107) H 05/16/17 06:00 Carbon Dioxide 25 mmol/L (21-32) 05/16/17 06:00 Anion Gap 8 (8-16) 05/16/17 06:00 BUN 11 mg/dL (7-18) D 05/16/17 06:00 Creatinine 0.5 mg/dL (0.55-1.02) L 05/16/17 06:00 Random Glucose 77 mg/dL (74-106) D 05/16/17 06:00 Calcium 7.8 mg/dL (8.5-10.1) L 05/16/17 06:00 Imaging and w/u to date reviewed IMP: partial sbo PLAN: Continue NPO/IVF/serial exams and serial abdominal x-rays; d/w patient that this will usually resolve w/conservative tx. h/e surgery is always a possibility. Kaveh Wilkes MD FACS Visit type - Case Type Case Type: ED Admission - Emergency Emergency Visit: Yes ED Registration Date: 05/15/17 Care time: The patient presented to the Emergency Department on the above date and was hospitalized for further evaluation of their emergent condition. - New patient This patient is new to me today: Yes Date on this admission: 05/16/17
--- NOTE | 2017-05-16 15:26 | EKG ---
Test Reason : Blood Pressure : / mmHG Vent. Rate : 078 BPM Atrial Rate : 078 BPM P-R Int : 124 ms QRS Dur : 078 ms QT Int : 428 ms P-R-T Axes : 028 042 042 degrees QTc Int : 487 ms SINUS RHYTHM WITH PREMATURE ATRIAL COMPLEXES NONSPECIFIC ST AND T WAVE ABNORMALITY ABNORMAL ECG WHEN COMPARED WITH ECG OF 14-MAY-2017 22:07, PREMATURE ATRIAL COMPLEXES ARE NOW PRESENT Confirmed by MERY GERARDO, DANIEL ([id number]) on 05/16/2017 3:26:21 PM Referred By: Confirmed By:DANIEL ORDONEZ MD
--- NOTE | 2017-05-16 19:01 | PN ---
Progress Note (short form) - Note Progress Note: Patient is comfortable, no further pain. Vital Signs Temperature 98.3 F 05/16/17 13:16 Pulse Rate 71 05/16/17 13:16 Respiratory Rate 16 05/16/17 13:16 Blood Pressure 129/69 05/16/17 13:16 O2 Sat by Pulse Oximetry (%) 97 05/16/17 08:00 GENERAL: lying comfortably in bed, nad, aaox3 EYES: extraocular movements intact, sclera anicteric, conjunctiva clear EARS, NOSE, THROAT: Moist mucous membranes NECK: supple, no cervical LAD LUNGS: CTAB, no wheezes, rales, or rhonchi HEART: RRR, positive for S1S2, no gallop or murmur appreciated ABDOMEN: Soft, NT,ND ,NR : no suprapubic tenderness ExTREMITIES: 2+ radial pulses, no cyanosis/clubbing/peripheral edema NEUROLOGICAL: CN II-XII intact. Normal speech CBCD WBC 4.6 K/mm3 (4.0-10.0) D 05/16/17 06:00 RBC 3.90 M/mm3 (3.60-5.2) 05/16/17 06:00 Hgb 11.7 GM/dL (10.7-15.3) D 05/16/17 06:00 Hct 35.3 % (32.4-45.2) 05/16/17 06:00 MCV 90.4 fl (80-96) 05/16/17 06:00 MCHC 33.1 g/dl (32.0-36.0) 05/16/17 06:00 RDW 12.6 % (11.6-15.6) 05/16/17 06:00 Plt Count 210 K/MM3 (134-434) 05/16/17 06:00 MPV 8.0 fl (7.5-11.1) 05/16/17 06:00 CMP Sodium 144 mmol/L (136-145) 05/16/17 06:00 Potassium 3.6 mmol/L (3.5-5.1) 05/16/17 06:00 Chloride 111 mmol/L (98-107) H 05/16/17 06:00 Carbon Dioxide 25 mmol/L (21-32) 05/16/17 06:00 Anion Gap 8 (8-16) 05/16/17 06:00 BUN 11 mg/dL (7-18) D 05/16/17 06:00 Creatinine 0.5 mg/dL (0.55-1.02) L 05/16/17 06:00 Creat Clearance w eGFR > 60 (>60) 05/16/17 06:00 Random Glucose 77 mg/dL (74-106) D 05/16/17 06:00 Calcium 7.8 mg/dL (8.5-10.1) L 05/16/17 06:00 Total Bilirubin 0.6 mg/dL (0.2-1.0) 05/16/17 06:00 AST 13 U/L (15-37) L D 05/16/17 06:00 ALT 24 U/L (12-78) 05/16/17 06:00 Alkaline Phosphatase 67 U/L (45-117) 05/16/17 06:00 Total Protein 5.6 g/dl (6.4-8.2) L 05/16/17 06:00 Albumin 3.0 g/dl (3.4-5.0) L D 05/16/17 06:00 Current Medications Generic Name Dose Route Start Last Admin Trade Name Freq PRN Reason Stop Dose Admin Heparin Sodium (Porcine) 5,000 unit 05/15/17 15:30 05/16/17 15:00 Heparin - SQ 5,000 unit TID CRISTOPHER Administration Sodium Chloride 1,000 mls @ 83 mls/hr 05/15/17 15:30 05/15/17 17:10 Normal Saline - IV 83 mls/hr ASDIR CRISTOPHER Administration Levothyroxine Sodium 50 mcg 05/16/17 07:00 05/16/17 06:46 Synthroid - PO 50 mcg DAILY@0700 CRISTOPHER Administration Morphine Sulfate 1 mg 05/15/17 17:23 Morphine Sulfate IVPUSH Q6H PRN PAIN Home Medications Medication Instructions Recorded Levothyroxine [Synthroid -] 50 mcg PO DAILY 01/27/12 Simvastatin 20 mg PO DAILY 01/27/12 Psyllium Seed [Metamucil] 1 each PO TID #0 packet 01/31/12 Naproxen 500 mg PO BID PRN 05/15/17 KUB: No small bowel obstruction reported. A/P: Patient is a 71yo woman with PMH of diverticulitis and multiple abdominal surgeries who presents with acute onset abdominal pain and nausea. Xray reporting possible early SBO. Patient will be admitted for further observation and placed on bowel rest. # Acute abdominal pain resolved , LFTs are within normal limit , surgical consult appreciated , NPO, IVF, morphine 1mg q6h prn pain, repeat KUB in am, discontinue Naprosyn . #hypothyroidism continue synthroid 50mcg daily #Hx of HLD ,hold simvastatin for now continue upon discharge # HX OF RIGHT HIP PAIN WAS taking Naprosyn , will discontinue for now, since can irritate the GI system. #DVT PPX - Heparin SQ TID Visit type - Emergency Visit Emergency Visit: Yes ED Registration Date: 05/15/17 Care time: The patient presented to the Emergency Department on the above date and was hospitalized for further evaluation of their emergent condition. - New Patient This patient is new to me today: No - Critical Care Critical Care patient: No
[2017-05-16] MEDS: SODIUM CHLORIDE 1,000 ML IV SCH ×2 (21:13)
[2017-05-17] MEDS: LEVOTHYROXINE NA 50 MCG TABLET (FP) PO SCH (06:09)
[2017-05-17] MEDS: HEPARIN NA (PORCINE) 5,000 UNITS/ML 1ML VIAL SQ SCH ×2 (06:09→13:55)
[2017-05-17 07:40] LABS: BASO % 0.6 % (0-2.0); EOS % 0.3 % (0-4.5); LYMPH # 1.7 (8-40); MCH 30.3 pg (25.7-33.7); MCHC 33.4 g/dl (32.0-36.0); MEAN CELL VOLUME 90.8 fl (80-96); MEAN PLT VOLUME 8.2 fl (7.5-11.1); MONO # 0.3 # (3.8-10.2); NEUT # 3.9 # (42.8-82.8); NEUT % 65.7 % (42.8-82.8); PLATELET COUNT 225 K/MM3 (134-434); RDW 12.3 % (11.6-15.6); WHITE BLOOD COUNT 5.9 K/mm3 (4.0-10.0)
[2017-05-17 08:30] LABS: ALBUMIN 3.3 g/dl (3.4-5.0); ANION GAP 16 (8-16); BILIRUBIN,TOTAL 0.6 mg/dL (0.2-1.0); CO2 16 mmol/L (21-32); CREATININE 0.5 mg/dL (0.55-1.02); GLUCOSE,RANDOM 51 mg/dL (74-106); MAGNESIUM 2.1 mg/dL (1.8-2.4); PHOSPHOROUS 4.2 mg/dL (2.5-4.9); SGOT/AST 19 U/L (15-37); SGPT/ALT 27 U/L (12-78)
[2017-05-17 08:31] LABS: ALK PHOS 79 U/L (45-117); TOT PROT 6.5 g/dl (6.4-8.2)
--- NOTE | 2017-05-17 08:38 | PN ---
Teaching Attending Note Name of Resident: Lorie Moss ATTENDING PHYSICIAN STATEMENT I saw and evaluated the patient. I reviewed the resident's note and discussed the case with the resident. I agree with the resident's findings and plan as documented. SUBJECTIVE: Patient is comfortable with no acute distress, no shortness of breath, no nausea or vomiting. OBJECTIVE: Vital Signs Temperature 97.7 F 05/17/17 06:00 Pulse Rate 79 05/17/17 06:00 Respiratory Rate 20 05/17/17 06:00 Blood Pressure 108/59 05/17/17 06:00 O2 Sat by Pulse Oximetry (%) 96 05/16/17 23:54 CBCD WBC 5.9 K/mm3 (4.0-10.0) 05/17/17 06:30 RBC 4.07 M/mm3 (3.60-5.2) 05/17/17 06:30 Hgb 12.4 GM/dL (10.7-15.3) 05/17/17 06:30 Hct 37.0 % (32.4-45.2) 05/17/17 06:30 MCV 90.8 fl (80-96) 05/17/17 06:30 MCHC 33.4 g/dl (32.0-36.0) 05/17/17 06:30 RDW 12.3 % (11.6-15.6) 05/17/17 06:30 Plt Count 225 K/MM3 (134-434) 05/17/17 06:30 MPV 8.2 fl (7.5-11.1) 05/17/17 06:30 CMP Sodium 144 mmol/L (136-145) 05/16/17 06:00 Potassium 3.6 mmol/L (3.5-5.1) 05/16/17 06:00 Chloride 111 mmol/L (98-107) H 05/16/17 06:00 Carbon Dioxide 25 mmol/L (21-32) 05/16/17 06:00 Anion Gap 8 (8-16) 05/16/17 06:00 BUN 11 mg/dL (7-18) D 05/16/17 06:00 Creatinine 0.5 mg/dL (0.55-1.02) L 05/16/17 06:00 Creat Clearance w eGFR > 60 (>60) 05/16/17 06:00 Random Glucose 77 mg/dL (74-106) D 05/16/17 06:00 Calcium 7.8 mg/dL (8.5-10.1) L 05/16/17 06:00 Total Bilirubin 0.6 mg/dL (0.2-1.0) 05/16/17 06:00 AST 13 U/L (15-37) L D 05/16/17 06:00 ALT 24 U/L (12-78) 05/16/17 06:00 Alkaline Phosphatase 67 U/L (45-117) 05/16/17 06:00 Total Protein 5.6 g/dl (6.4-8.2) L 05/16/17 06:00 Albumin 3.0 g/dl (3.4-5.0) L D 05/16/17 06:00 Current Medications Generic Name Dose Route Start Last Admin Trade Name Freq PRN Reason Stop Dose Admin Heparin Sodium (Porcine) 5,000 unit 05/15/17 15:30 05/17/17 06:09 Heparin - SQ 5,000 unit TID CRISTOPHER Administration Sodium Chloride 1,000 mls @ 83 mls/hr 05/15/17 15:30 05/16/17 21:13 Normal Saline - IV 83 mls/hr ASDIR CRISTOPHER Administration Levothyroxine Sodium 50 mcg 05/16/17 07:00 05/17/17 06:09 Synthroid - PO 50 mcg DAILY@0700 CRISTOPHER Administration Morphine Sulfate 1 mg 05/15/17 17:23 Morphine Sulfate IVPUSH Q6H PRN PAIN Home Medications Medication Instructions Recorded Levothyroxine [Synthroid -] 50 mcg PO DAILY 01/27/12 Simvastatin 20 mg PO DAILY 01/27/12 Psyllium Seed [Metamucil] 1 each PO TID #0 packet 01/31/12 Naproxen 500 mg PO BID PRN 05/15/17 PE: no abdominal pain rest of PE per resident's note KUB: No small bowel obstruction reported(05/16) A/P: Patient is a 71yo woman with PMH of diverticulitis and multiple abdominal surgeries who presents with acute onset abdominal pain and nausea. Xray reporting possible early SBO. Patient will be admitted for further observation and placed on bowel rest. # Acute abdominal pain resolved , LFTs are within normal limit , surgical consult appreciated s/p IVF and Iv pain meds. discontinued Naprosyn since can cause GI pain. Follow with in a week #hypothyroidism continue synthroid 50mcg daily #Hx of HLD ,continue simvastatin # HX OF RIGHT HIP PAIN WAS taking Naprosyn , will discontinue for now, since can irritate the GI system. Patient can go home.
[2017-05-17 14:21] VITALS: BP 122/64; PULSE 75; TEMP 97.9
--- NOTE | 2017-05-17 15:25 | PN ---
Progress Note (short form) - Note Progress Note: Pt seen and examined today. No nausea or emesis. She tolerated solid food today. Passing small amount of flatus/had to BM's. No abd pain. Vital Signs Period Temp Pulse Resp BP Sys/Quinonez Pulse Ox Last 24 Hr 97.7 F-98.2 F 68-82 16-20 108-140/49-78 96-99 GEN: appears comfortable ABd: soft, non-distended, non-tender CBC, BMP 05/17/17 06:30 05/17/17 06:30 AXR: no evidnece of bowel obstruction, contrast in colon A/P: 71 yo female, resolved SBO Pt doing well, diet advanced to soft, advised pt to continue soft for the next several days No need for surgical intervention, D/w Dr. Wilkes
--- NOTE | 2017-05-17 15:36 | DS ---
Physical Exam: SUBJECTIVE: Patient seen and examined OBJECTIVE: Vital Signs Period Temp Pulse Resp BP Sys/Quinonez Pulse Ox Last 24 Hr 97.7 F-98.2 F 68-82 16-20 108-140/49-78 96-99 PHYSICAL EXAM GENERAL: The patient is awake, alert, and fully oriented, in no acute distress. HEAD: Normal with no signs of trauma. EYES: PERRL, extraocular movements intact, sclera anicteric, conjunctiva clear. ENT: Ears normal, nares patent, oropharynx clear without exudates, moist mucous membranes. NECK: Trachea midline, full range of motion, supple. LUNGS: Breath sounds equal, clear to auscultation bilaterally, no wheezes, no crackles, no accessory muscle use. HEART: Regular rate and rhythm, S1, S2 without murmur, rub or gallop. ABDOMEN: Soft, nontender, nondistended, normoactive bowel sounds, no guarding, no rebound, no hepatosplenomegaly, no masses. EXTREMITIES: 2+ pulses, warm, well-perfused, no edema. NEUROLOGICAL: Cranial nerves II through XII grossly intact. Normal speech, gait not observed. PSYCH: Normal mood, normal affect. SKIN: Warm, dry, normal turgor, no rashes or lesions noted. LABS Laboratory Results - last 24 hr HOSPITAL COURSE: Date of Admission:05/15/17 Date of Discharge: 05/17/17 Discharge Summary Reason For Visit: SMALL BOWEL OBSTRUCTION Current Active Problems Small bowel obstruction due to adhesions (Acute) Condition: Stable - Instructions Diet, Activity, Other Instructions: You were admitted to the hospital for a partial small bowel obstruction, which was managed conservatively with IV fluids and bowel rest. Recommendations: -Please resume your regular daily activities. Eat a soft and bland diet for the next 1 to 2 days and advance as tolerated. Medications: -You can resume your regular daily medications. Follow-up: -Please see Dr. Brooks within 1 week for post-hospital evaluation. Discontinue Naproxen for your hip pain as it can irritate your stomach and upset your gastrointestinal system. Also follow with for further evaluation . Please return to the Emergency Department if you have worsening abdominal pain, vomiting, can not keep down any food, or have new or concerning symptoms. Referrals: Kaveh Wilkes MD [Staff Physician] - 2 Weeks Pradeep Brooks MD [Staff Physician] - 1 Week Disposition: HOME - Home Medications Comprehensive Discharge Medication List: Ambulatory Orders Levothyroxine [Synthroid -] 50 mcg PO DAILY 01/27/12 Simvastatin 20 mg PO DAILY 01/27/12 Psyllium Seed [Metamucil] 1 each PO TID #0 packet 01/31/12 Naproxen 500 mg PO BID PRN 05/15/17
== END 2017-05-17 16:10 | disposition home or self-care (01) ==
LOC: JER 10:10 → INTOOBSV 15:10 → JERBED 15:10 → J7W 19:08
PROVIDERS: ADMIT Internal Medicine; ATTEND Internal Medicine
PROC: 3E013GC Introduction of Other Therapeutic Substance into Subcutaneous Tissue, Percutaneous Approach (ICD-10-PCS; principal; 2017-05-15)
DX: K56.51 Intestinal adhesions [bands], with partial obstruction (principal); E78.5 Hyperlipidemia, unspecified; E03.9 Hypothyroidism, unspecified; Z88.2 Allergy status to sulfonamides
CPT/HCPCS: 36415; 74000-TC; 74020-TC; 74177-TC; 80053; 83690; 83735; 84100; 85025; 93005; 93010; 96372; 99284-25; G0378; J1644; Q9967

== ENCOUNTER 2017-08-11 08:31 | Day surgery (SDC) | payer OTHER, BC ==
[2017-08-10 12:32] VITALS: BMI 29.8
--- NOTE | 2017-08-10 12:34 | HP ---
- Patient Scheduled date of Surgery: 08/11/17 Scheduled Surgical Procedure: Phacoemulsification and cataract extraction with PCIOL Affected Eye: Right Chief Complaint (Indication for surgery): Decreased vision affecting ADLs - Ocular History Other Eye History: Other (td, narrow angles) Eye Medications: vigamox Previous Eye Surgery: none - Medical History Illnesses: Hypertension (s/p cholescystectomy, appendectomy, shoulder and knee repair), Hypercholesterolemia, Thyroid Disease Current Medications: Ambulatory Orders Levothyroxine [Synthroid -] 50 mcg PO DAILY 01/27/12 Simvastatin 20 mg PO DAILY 01/27/12 Psyllium Seed [Metamucil] 1 each PO TID #0 packet 01/31/12 Naproxen 500 mg PO BID PRN 05/15/17 Allergies/Adverse Reactions: Allergies Allergy/AdvReac Type Severity Reaction Status Date / Time Sulfa (Sulfonamide Allergy Mild Rash Verified 05/15/17 10:16 Antibiotics) Ocular Examination - Best Corrected Visual Acuity Distance: Right eye: 20/50 Distance: Left eye: 20/30 - External/Slit Lamp Examination Abnormalities: decreased tear break up time - Intraocular Pressure Intraocular Pressure - Right eye: 13 Intraocular Pressure-Left eye: 13 - Lens Lens: 2+ NS 2+ cortical - Vitreous/Retina Vitreous/Retina: c:d 0.15 m/v/p wnl - Special Examination M - Right eye: +1.25 -0.50 x 170 M - Left eye: +1.25 K - Right eye: 43.5/44.25 x 105 K - Left eye: 42.75/43.75 x 100 AL - Right eye: 23.18 AL - Left eye: 23.36 IOL bag: +21.0 d hoya 251 IOL sulcus: +20.5 d hoya 231 IOL AC: +17.5 d MTA 4uo - Impression Impression: Cataract Right Eye - Plan Plan: Phacoemulsification and cataract extraction - IOL Right eye Post-hospital care will be provided in office on: 08/12/17
[~2017-08-11 08:31] MED LIST: ACETAMINOPHEN 325 MG TABLET (FP) PO PRN; DICLOFENAC SODIUM 0.1% OPHTHALMIC 2.5ML BOTTLE OP SCH; TOBRAMYCIN/DEXAMETHASONE OPHTH. OINTMENT 1 TUBE TP ONE
[2017-08-11] MEDS ORDERED: TROPICAMIDE 0.5% OPHTHALMIC SOLN 15 ML BOTTLE ONE (09:00)
[2017-08-11] MEDS ORDERED: CIPROFLOXACIN 0.3% EYE DROPS 5 ML BOTTLE ONE (09:00)
[2017-08-11] MEDS ORDERED: PHENYLEPHRINE 2.5% OPHTH SOLN 15 ML BOTTLE ONE (09:00)
[2017-08-11] MEDS: CIPROFLOXACIN HCL 0.3% OPHTH 2.5ML BOTTLE OP SCH ×2 (09:15→09:30)
[2017-08-11] MEDS: TROPICAMIDE 1% OPHTH SOLN 15 ML BOTTLE OP SCH ×3 (09:15→09:30)
[2017-08-11] MEDS: PHENYLEPHRINE 2.5% OPHTH SOLN 15 ML BOTTLE OP SCH ×3 (09:15→09:30)
[2017-08-11] MEDS: FLURBIPROFEN 0.03% OPHTH SOLN 2.5 ML BOTTLE ONE ×3 (09:15→09:30)
[2017-08-11 09:28] VITALS: TEMP 97.6
--- NOTE | 2017-08-11 10:34 | HP ---
History & Physical Update - History History: No Change - Physical Physical: No Change - Assessment Assessment: No Change - Plan Plan: No Change (reviewed Dr. Damon Can's note from 08/01/17 no changes)
[2017-08-11] MEDS ORDERED: LIDOCAINE HCL 2% JELLY (5 ML/TUBE) TP ONE (10:40)
[2017-08-11] MEDS ORDERED: MIDAZOLAM HCL 2 MG/2 ML SINGLE DOSE VIAL ONE (10:50)
[2017-08-11] MEDS ORDERED: LIDOCAINE HCL 1% PRESERVATIVE FREE - 30ML VIAL IO ONE (10:57)
[2017-08-11] MEDS ORDERED: CHONDROITIN SU A/HYALUR SOD 1 KIT IO ONE (10:58)
[2017-08-11] MEDS ORDERED: TOBRAMYCIN/DEXAMETHASONE OPHTH. OINTMENT 1 TUBE TP ONE (11:14)
--- NOTE | 2017-08-11 11:18 | OP ---
Ophthalmology Operative Note Pre-Operative Diagnosis: Cataract Affected Eye: Right Operation: Phacoemulsification and cataract extraction with PCIOL Findings: cataract right eye Post-Operative Diagnosis: Same as Pre-op Accreditation Manager: None Anesthesiologist: Shantal Parsons MD Anesthesia: Topical Specimens Removed: none Estimated blood loss: none Drains & Tubes with Location: none Operative Report Dictated: Yes
--- NOTE | 2017-08-11 12:03 | OP ---
DATE OF OPERATION: 08/11/2017 PREOPERATIVE DIAGNOSIS: Nuclear sclerotic cataract, right eye. POSTOPERATIVE DIAGNOSIS: Nuclear sclerotic cataract, right eye. PROCEDURE: Phacoemulsification and cataract extraction with insertion of posterior chamber intraocular lens, right eye. SURGEON: Lisa Hamm MD AIRPORT GUIDE: None. ANESTHESIA: Topical. ANESTHESIOLOGIST: Shantal Parsons MD OPERATIVE PROCEDURE: The patient received viscous lidocaine gel 2% and was then lightly sedated and then prepped and draped in the usual sterile fashion so as to expose only the right eye. Ophthalmic Betadine was instilled into the inferior fornix, and the lashes were taped out of the surgical field. An eyelid speculum was placed into the right eye. A paracentesis was made in superior clear cornea at the limbus. Nonpreserved lidocaine 1%, 0.5 mL, was injected into the anterior chamber. Viscoelastic material was instilled into the anterior chamber via the paracentesis. A 2.4-mm keratome was then used to create the main incision in temporal clear cornea at the limbus. A continuous curvilinear capsulorrhexis was performed using a cystotome and Utrata forceps. Hydrodissection of the lens cortex was performed using BSS on a cannula until the nucleus was noted to be freely rotating. The phacoemulsification tip was inserted via the main wound and used to sculpt 2 perpendicular grooves into the lens nucleus. The nucleus was cracked into 4 quadrants using 2 instruments. Each quadrant was lifted out of the capsule into the iris plane and individually phacoemulcified. The remaining cortical material was then aspirated using the irrigation and aspiration port. The capsular bag was inflated using Provisc, and a preloaded Hoya lens, model 251, power +20.5 diopters was injected into the capsular bag. It was centered using a Sinskey hook. The residual viscoelastic material was removed from the anterior chamber using irrigation and aspiration. The wound edges were hydrated using BSS. The wound was tested for leakage and found to be watertight. Therefore, TobraDex ointment was placed in the eye, and the speculum was removed from the eye, and the eyelid was closed. Sterile dressing and shield were placed over the eye, and the patient was transferred to the recovery room in stable condition, told to follow up in 1 day. LISA HAMM M.D. [id number]
[2017-08-11 12:44] VITALS: BP 120/73; PULSE 72
== END 2017-08-11 12:25 | disposition home or self-care (01) ==
LOC: JASU-SURG 08:31
PROVIDERS: ATTEND Ophthalmology
PROC: 08RJ3JZ Replacement of Right Lens with Synthetic Substitute, Percutaneous Approach (ICD-10-PCS; principal; 2017-08-11 10:30)
DX: H25.11 Age-related nuclear cataract, right eye (principal)

== ENCOUNTER 2019-10-30 16:00 | Emergency (ER) | payer OTHER, BC ==
[2019-10-30] MEDS ORDERED: ACETAMINOPHEN 500 MG TABLET (FP) PO ONE (16:11)
[2019-10-30 16:15] VITALS: TEMP 98
[2019-10-30 16:19] VITALS: BMI 30.2
[2019-10-30] MEDS ORDERED: ACETAMINOPHEN 325 MG TABLET (FP) ONE (16:22)
[2019-10-30 17:53] VITALS: PULSE 78
[2019-10-30 17:55] VITALS: BP 142/68
== END 2019-10-30 18:00 | disposition home or self-care (01) ==
LOC: FER 16:00
DX: S09.90XA Unspecified injury of head, initial encounter (principal); W19.XXXA Unspecified fall, initial encounter
CPT/HCPCS: 70450-TC; 72125-TC; 73523-TC-FY; 99284-25

== ENCOUNTER 2020-03-05 04:56 | Day surgery (SDC) | payer OTHER, BC ==
--- OUTSIDE RECORDS SUMMARY | 2020-02-27 11:36 | XMS ---
:1945 Author Organization [facility] Care Team Providers Name Role Phone NISHA PINO Unavailable Unavailable OLESYA CRAWLEY Unavailable Unavailable Rico, Ammir Unavailable [phone] Rico, Ammir Unavailable [phone] Rico, Ammir Unavailable [phone] Rico, Ammir Unavailable [phone] Rico, Ammir Unavailable [phone] Rico, Ammir Unavailable [phone] Rico, Ammir Unavailable [phone] Rico, Ammir Unavailable [phone] Rico, Ammir Unavailable [phone] Rico, Ammir Unavailable [phone] Rico, Ammir Unavailable [phone] Rico, Ammir Unavailable [phone] Rico, Ammir Unavailable [phone] Rico, Ammir Unavailable [phone] Rico, Ammir Unavailable [phone] Rico, Ammir Unavailable [phone] REGINO HICKS Unavailable Unavailable Re-disclosure Warning The records that you are about to access may contain information from federally- assisted alcohol or drug abuse programs. If such information is present, then the following federally mandated warning applies: This information has been disclosed to you from records protected by federal confidentiality rules (42 CFR part 2). The federal rules prohibit you from making any further disclosure of this information unless further disclosure is expressly permitted by the written consent of the person to whom it pertains or as otherwise permitted by 42 CFR part 2. A general authorization for the release of medical or other information is NOT sufficient for this purpose. The Federal rules restrict any use of the information to criminally investigate or prosecute any alcohol or drug abuse patient.The records that you are about to access may contain highly sensitive health information, the redisclosure of which is protected by Article 27-F of the [facility] Public Health law. If you continue you may haveaccess to information: Regarding HIV / AIDS; Provided by facilities licensed or operated by the [facility] Office of Mental Health; or Provided by the [facility] Office for People With Developmental Disabilities. If such information is present, then the following [facility] mandated warning applies: This information has been disclosed to you from confidential records which are protected by state law. State law prohibits you from making any further disclosure of this information without the specific written consent of the person to whom it pertains, or as otherwise permitted by law. Any unauthorized further disclosure in violation of state law may result in a fine or long-term sentence or both. A general authorization for the release of medical or other information is NOT sufficient authorization for further disclosure. Allergies and Adverse Reactions Type Description Substance Reaction Status Data Source(s ) Drug allergy SULFA SULFA:[id number] Active [facility] (Viji Gómez Physician) Encounters Encounter Providers Location Date Indications Data Source(s ) Attender: Ammikena 02/19/2020 [facility] (Dameon Gómez 12:00:00 AM DUSTIN Gómez Ph ysician) Office Outpatient Attender: ALVAREZ, 01/19/2020 01:10:00 N39.0 [facility] NISHA FreireAdmitter: AM [facility] NISHA PINOReferrer: NISHA PINO N39.0 Outpatient Attender: ALVAREZ, 10/25/2019 06:37:00 N39.0 [facility] NISHA FreireAdmitter: PM [facility] NISHA PINOReferrer: NISHA PINO N39.0 Outpatient Attender: ALVAREZ 10/25/2019 12:30:00 N39.0 [facility] NISHA FreireAdmitter: PM [facility] NISHA PINOReferrer: NISHA PINO N39.0 Outpatient Attender: KURT, 09/11/2018 Z83.79 K57.30 [facility] ZVIAdmitter: KURT, 06:00:00 AM EDT Z87.19 Health Care ZVIReferrer: OLESYA Florez Z83.79 K57.30 Z87.19 Immunizations Vaccine Date Status Description Data Source(s) Influenza, high dose 02/19/2020 completed [facility] (Ammir Rico seasonal 12:00:00 AM EDT Physician) New in 2011. IIV4 03/26/2019 completed [facility] (A mmir Rico 12:00:00 AM EST Physician) Influenza, high dose 04/04/2018 completed [facility] (Ammir Rico seasonal 12:00:00 AM EST Physician) Medications Medication Brand Start Product Dose Route Administrative Pharmacy [facility] Indications Reaction Description Data Name Date Form Instructions Instructions Source(s) cetirizine ZYRTEC 11/05/ TABLET 30 complet ZYRTE C [facility] hydrochlori :[id number] 2019 ed (Ammir de 10 MG 26 12:00: Rico Oral Tablet 00 AM Physici an) [Zyrtec] EDT ZYRTEC:1020 026 Hydrocortis HYTONE 11/05/ OINTMENT 1 complet HY TONE [facility] one 0.025 :2019 ed (Ammir MG/MG 9 12:00: Rico Topical 00 AM Physician) Ointment EDT [Hytone] HYTONE:2062 19 Furosemide LASIX: 10/29/ TABLET 5 complet LASIX [facility] 40 MG Oral [id number] ed (Ammir Tablet 12:00: Rico [Lasix] 00 AM Physician) LASIX: EDT 9 valsartan DIOVAN 10/17/ TABLET 30 complet DIOVAN [facility] 40 MG Oral :[id number] 2019 ed (Ammir Tablet 4 12:00: Rico [Diovan] 00 AM Physician) DIOVAN:3522 EDT 74 Pramipexole MIRAPE 09/09/ TABLET 60 complet CARMINE PEX [facility] dihydrochlo X:8590 2019 ed (Ammir ride 0.125 35 12:00: Rico MG Oral 00 AM Physician) Tablet EDT [Mirapex] MIRAPEX:859 035 Levothyroxi LEVOTH 08/22/ TABLET 90 complet LEVO THYROXIN [facility] ne Sodium YROXIN 2019 ed E (Ammir 0.05 MG E:9662 12:00: Rico Oral Tablet 47 00 AM Physici an) [Synthroid] EDT LEVOTHYROXI NE:798295 Ergocalcife VITAMI 08/31/ CAPSULE 12 complet VIT WHITE D2 MED[facility] rol 56839 N 2019 ed (Ammir UNT Oral D2:136 12:00: Rico Capsule 7410 00 AM Physician) VITAMIN EDT D2:[id number] Simvastatin SIMVAS 04/30/ TABLET 90 complet SIMV ASTATIN [facility] 20 MG Oral TATIN: 2018 ed (Ammir Tablet [id number] 12:00: Rico SIMVASTATIN 00 AM Physici an) :[id number] EST Nitroglycer NITROG 02/20/ TABLET 1 complet NITR OGLYCERI [facility] in 0.4 MG LYCERI 2018 ed N (Ammir Sublingual N:1980 12:00: Rabad i Tablet 39 00 AM Physician) NITROGLYCER EDT IN:[id number] Insurance Providers Payer name Policy type Policy ID Covered Covered republican's Policy P faraz / Coverage republican ID relationship to [employer] ormation type weinberg BC INDEMNITY [id number] [employer] [employer] [employer] BC PPO [id number] [employer] [place] MED[place] BC PPO [id number] BC INDEMNITY [id number] [employer] [employer] [place] MEDICARE BC PPO [id number] Problems, Conditions, and Diagnoses Code Display Name Description Problem Type Effective Data Sour ce(s) Dates R94.39 Abnormal result of ABNORMAL RESULT OF Problem 0 [facility] (Ammir other cardiovascular OTHER CARDIOVASCULAR 12:00 :00 AM Rico function study FUNCTION STUDY EDT Physic jim) R10.13 Epigastric pain EPIGASTRIC PAIN Problem 11/06/2019 [facility] EN (Ammir 12:00:00 AM Rico EDT Physician) M25.551 Pain in right hip PAIN IN RIGHT HIP Problem 11/06/2019 [facility] (Ammir 12:00:00 AM Rico EDT Physician) L30.9 Dermatitis, DERMATITIS, Problem 11/06/2019 [facility] (Ammi r unspecified UNSPECIFIED 12:00:00 AM Rico EDT Physician) R51 Headache HEADACHE Problem 11/06/2019 [facility] (Ammir 12:00:00 AM Rico EDT Physician) W57.XXX Bitten or stung by BITTEN OR STUNG BY Problem 0 [facility] (Ammir A nonvenomous insect NONVENOMOUS INSECT 12:00:00 AM Rcio and other AND OTHER EDT Physician) nonvenomous NONVENOMOUS arthropods, initial ARTHROPODS, INITIAL encounter ENCOUNTER Z91.81 History of falling HISTORY OF FALLING Problem 0 [facility] (Ammir 12:00:00 AM Rico EDT Physician) R06.00 Dyspnea, unspecified DYSPNEA, UNSPECIFIED Problem 10/29 [facility] (Ammir 12:00:00 AM Rico EDT Physician) Z09 Encounter for ENCOUNTER FOR Problem 10/30/2019 [facility] ( Ammir follow-up FOLLOW-UP 12:00:00 AM Rico examination after EXAMINATION AFTER EDT Physician) completed treatment COMPLETED TREATMENT for conditions other FOR CONDITIONS OTHER than malignant THAN MALIGNANT neoplasm NEOPLASM K21.9 Gastro-esophageal GASTRO-ESOPHAGEAL Problem 10/30/2019 [facility] (Ammir reflux disease REFLUX DISEASE 12:00:00 AM Rabad i without esophagitis WITHOUT ESOPHAGITIS EDT Physician) I51.7 Cardiomegaly CARDIOMEGALY Problem 10/30/2019 [facility] (Am rosa m 12:00:00 AM Rico EDT Physician) I50.9 Heart failure, HEART FAILURE, Problem 10/30/2019 [facility] (Ammir unspecified UNSPECIFIED 12:00:00 AM Irco EDT Physician) R07.9 Chest pain, CHEST PAIN, Problem 10/18/2019 [facility] (Ammi r unspecified UNSPECIFIED 12:00:00 AM Rico EDT Physician) Z71.89 Other specified OTHER SPECIFIED Problem 08/23/2019 [facility] EN (Ammir counseling COUNSELING 12:00:00 AM Rico EDT Physician) R10.84 Generalized GENERALIZED Problem 05/17/2019 [facility] (Ammi r abdominal pain ABDOMINAL PAIN 12:00:00 AM Rabad i EST Physician) N39.0 Urinary tract URINARY TRACT Problem 05/17/2019 [facility] ( Ammir infection, site not INFECTION, SITE NOT 12:00:0 0 AM Rico specified SPECIFIED EST Physician) R82.81 PYURIA PYURIA Problem 05/17/2019 [facility] (Ammir 12:00:00 AM Rico EST Physician) R53.82 Chronic fatigue, CHRONIC FATIGUE, Problem 05/09/2019 ME DGEN (Ammir unspecified UNSPECIFIED 12:00:00 AM Rico EST Physician) Z23 Encounter for ENCOUNTER FOR Problem 03/26/2019 [facility] ( Ammir immunization IMMUNIZATION 12:00:00 AM Rico EST Physician) E07.9 Disorder of thyroid, DISORDER OF THYROID, Problem 08/30 [facility] (Ammir unspecified UNSPECIFIED 12:00:00 AM Rico EDT Physician) R25.2 Cramp and spasm CRAMP AND SPASM Problem 08/30/2018 [facility] EN (Ammir 12:00:00 AM Rico EDT Physician) M79.606 Pain in leg, PAIN IN LEG, Problem 08/30/2018 [facility] (Am rosa m unspecified UNSPECIFIED 12:00:00 AM Rico EDT Physician) H91.93 Unspecified hearing UNSPECIFIED HEARING Problem 019 [facility] (Ammir loss, bilateral LOSS, BILATERAL 12:00:00 AM Rab jad EDT Physician) E03.9 Hypothyroidism, HYPOTHYROIDISM, Problem 02/20/2018 [facility] EN (Ammir unspecified UNSPECIFIED 12:00:00 AM Rico EDT Physician) Z00.01 Encounter for ENCOUNTER FOR Problem 02/20/2018 [facility] ( Ammir general adult GENERAL ADULT 12:00:00 AM Rico medical examination MEDICAL EXAMINATION EDT Physician) with abnormal WITH ABNORMAL findings FINDINGS F41.9 Anxiety disorder, ANXIETY DISORDER, Problem 02/20/2018 [facility] (Ammir unspecified UNSPECIFIED 12:00:00 AM Rico EDT Physician) K57.10 Diverticulosis of DIVERTICULOSIS OF Problem 02/20/2018 [facility] (Ammir small intestine SMALL INTESTINE 12:00:00 AM Rab jad without perforation WITHOUT PERFORATION EDT Physician) or abscess without OR ABSCESS WITHOUT bleeding BLEEDING E78.5 Hyperlipidemia, HYPERLIPIDEMIA, Problem 02/20/2018 [facility] EN (Ammir unspecified UNSPECIFIED 12:00:00 AM Rico EDT Physician) B96.81 Helicobacter pylori HELICOBACTER PYLORI Problem 018 [facility] (Ammir [H. pylori] as the [H. PYLORI] THE 12:00:00 AM Rico cause of diseases CAUSE OF DISEASES EDT Physician) classified elsewhere CLASSIFIED ELSEWHERE R94.31 Abnormal ABNORMAL Problem 02/20/2018 [facility] (Ammir electrocardiogram ELECTROCARDIOGRAM 12:00:00 AM Rico [ECG] [EKG] [ECG] [EKG] EDT Physician) N39.0 Urinary tract URINARY TRACT Diagnosis 01/19/2020 [facility] infection, site not INFECTION, SITE NOT 01:10:0 0 AM [facility] specified SPECIFIED EDT [employer] R19.5 Other fecal OTHER FECAL Diagnosis 09/11/2018 [facility] abnormalities ABNORMALITIES 06:00:00 AM [facility] EDT [employer] Z87.19 Personal history of PERSONAL HISTORY OF Diagnosis 019 [facility] other diseases of OTHER DISEASES OF 06:00:00 AM [facility] the digestive system THE DIGESTIVE SYSTEM EDT [employer] K57.30 Diverticulosis of DVRTCLOS OF LG INT Diagnosis 09/11/2018 [facility] large intestine W/O PERFORATION OR 06:00:00 AM [facility] without perforation ABSCESS W/O BLEEDING EDT Care or abscess without Corpor ation bleeding Z83.79 Family history of FAMILY HISTORY OF Diagnosis 09/11/2018 [facility] other diseases of OTHER DISEASES OF 06:00:00 AM [facility] the digestive system THE DIGESTIVE SYSTEM EDT [employer] Surgeries/Procedures Procedure Description Date Indications Data Source(s) Documentation of current 11/06/2019 [facility] (Ammir Rico medications (procedure) 12:00:00 AM EDT P hysician) Documentation of current 11/06/2019 [facility] (Ammir Rico medications (procedure) 12:00:00 AM EDT P hysician) Documentation of current 11/06/2019 [facility] (Ammir Rico medications (procedure) 12:00:00 AM EDT P hysician) Documentation of current 11/06/2019 [facility] (Ammir Rico medications (procedure) 12:00:00 AM EDT P hysician) Documentation of current 11/06/2019 [facility] (Ammir Rico medications (procedure) 12:00:00 AM EDT P hysician) Documentation of current 10/30/2019 [facility] (Ammir Rico medications (procedure) 12:00:00 AM EDT P hysician) Documentation of current 10/30/2019 [facility] (Ammir Rico medications (procedure) 12:00:00 AM EDT P hysician) Documentation of current 10/30/2019 [facility] (Ammir Rico medications (procedure) 12:00:00 AM EDT P hysician) Documentation of current 10/30/2019 [facility] (Ammir Rico medications (procedure) 12:00:00 AM EDT P hysician) Medication Reconciliation 05/17/2019 [facility] (Ammir Rico (procedure) 12:00:00 AM EST Physician) Documentation of current 05/17/2019 [facility] (Ammir Rico medications (procedure) 12:00:00 AM EST P hysician) Documentation of current 05/17/2019 [facility] (Ammir Rico medications (procedure) 12:00:00 AM EST P hysician) Documentation of current 05/17/2019 [facility] (Ammir Rico medications (procedure) 12:00:00 AM EST P hysician) Documentation of current 05/17/2019 [facility] (Ammir Rico medications (procedure) 12:00:00 AM EST P hysician) Documentation of current 05/17/2019 [facility] (Ammir Rico medications (procedure) 12:00:00 AM EST P hysician) Documentation of current 05/17/2019 [facility] (Ammir Rico medications (procedure) 12:00:00 AM EST P hysician) Documentation of current 05/17/2019 [facility] (Ammir Rico medications (procedure) 12:00:00 AM EST P hysician) Documentation of current 05/17/2019 [facility] (Ammir Rico medications (procedure) 12:00:00 AM EST P hysician) Documentation of current 05/17/2019 [facility] (Ammir Rico medications (procedure) 12:00:00 AM EST P hysician) Documentation of current 05/17/2019 [facility] (Ammir Rico medications (procedure) 12:00:00 AM EST P hysician) Documentation of current 05/17/2019 [facility] (Ammir Rico medications (procedure) 12:00:00 AM EST P hysician) Documentation of current 05/17/2019 [facility] (Ammir Rico medications (procedure) 12:00:00 AM EST P hysician) Documentation of current 03/26/2019 [facility] (Ammir Rico medications (procedure) 12:00:00 AM EST P hysician) Documentation of current 03/26/2019 [facility] (Ammir Rico medications (procedure) 12:00:00 AM EST P hysician) Documentation of current 03/26/2019 [facility] (Ammir Rico medications (procedure) 12:00:00 AM EST P hysician) Documentation of current 03/26/2019 [facility] (Ammir Rico medications (procedure) 12:00:00 AM EST P hysician) Documentation of current 03/26/2019 [facility] (Ammir Rico medications (procedure) 12:00:00 AM EST P hysician) Documentation of current 03/26/2019 [facility] (Ammir Rico medications (procedure) 12:00:00 AM EST P hysician) Documentation of current 08/30/2018 [facility] (Ammir Rico medications (procedure) 12:00:00 AM EDT P hysician) Documentation of current 08/30/2018 [facility] (Ammir Rico medications (procedure) 12:00:00 AM EDT P hysician) Documentation of current 08/30/2018 [facility] (Ammir Rico medications (procedure) 12:00:00 AM EDT P hysician) Documentation of current 08/30/2018 [facility] (Ammir Rico medications (procedure) 12:00:00 AM EDT P hysician) Documentation of current 08/30/2018 [facility] (Ammir Rico medications (procedure) 12:00:00 AM EDT P hysician) Documentation of current 08/30/2018 [facility] (Ammir Rico medications (procedure) 12:00:00 AM EDT P hysician) Documentation of current 03/15/2018 [facility] (Ammir Rico medications (procedure) 12:00:00 AM EDT P hysician) Documentation of current 03/15/2018 [facility] (Ammir Rico medications (procedure) 12:00:00 AM EDT P hysician) Documentation of current 03/15/2018 [facility] (Ammir Rico medications (procedure) 12:00:00 AM EDT P hysician) Documentation of current 03/15/2018 [facility] (Ammir Rico medications (procedure) 12:00:00 AM EDT P hysician) Documentation of current 03/15/2018 [facility] (Ammir Rico medications (procedure) 12:00:00 AM EDT P hysician) Documentation of current 03/15/2018 [facility] (Ammir Rico medications (procedure) 12:00:00 AM EDT P hysician) Documentation of current 03/15/2018 [facility] (Ammir Rico medications (procedure) 12:00:00 AM EDT P hysician) Documentation of current 03/15/2018 [facility] (Ammir Rico medications (procedure) 12:00:00 AM EDT P hysician) Documentation of current 03/15/2018 [facility] (Ammir Rico medications (procedure) 12:00:00 AM EDT P hysician) Documentation of current 03/15/2018 [facility] (Ammir Rico medications (procedure) 12:00:00 AM EDT P hysician) Documentation of current 03/15/2018 [facility] (Ammir Rico medications (procedure) 12:00:00 AM EDT P hysician) Documentation of current 02/20/2018 [facility] (Ammir Rico medications (procedure) 12:00:00 AM EDT P hysician) Documentation of current 02/20/2018 [facility] (Ammir Rico medications (procedure) 12:00:00 AM EDT P hysician) Documentation of current 02/20/2018 [facility] (Ammir Rico medications (procedure) 12:00:00 AM EDT P hysician) Documentation of current 02/20/2018 [facility] (Ammir Rico medications (procedure) 12:00:00 AM EDT P hysician) Documentation of current 02/20/2018 [facility] (Ammir Rico medications (procedure) 12:00:00 AM EDT P hysician) Documentation of current 02/20/2018 [facility] (Ammir Rico medications (procedure) 12:00:00 AM EDT P hysician) Documentation of current 02/20/2018 [facility] (Ammir Rico medications (procedure) 12:00:00 AM EDT P hysician) Documentation of current 02/20/2018 [facility] (Ammir Rico medications (procedure) 12:00:00 AM EDT P hysician) Documentation of current 02/20/2018 [facility] (Ammir Rico medications (procedure) 12:00:00 AM EDT P hysician) Documentation of current 02/20/2018 [facility] (Ammir Rico medications (procedure) 12:00:00 AM EDT P hysician) Documentation of current 02/20/2018 [facility] (Ammir Rico medications (procedure) 12:00:00 AM EDT P hysician) Documentation of current 02/20/2018 [facility] (Ammir Rico medications (procedure) 12:00:00 AM EDT P hysician) Documentation of current 02/20/2018 [facility] (Ammir Rico medications (procedure) 12:00:00 AM EDT P hysician) Results ID Date Data Source [id number] 01/25/2020 11:05:00 AM EDT [facility] Name Value Range Interpretation Description Data Sup porting Code Source(s) Document(s ) SARS [facility] coronavirus 2 RNA This lab was ordered by [facility] and reported by [facility]. ID Date Data Source [id number] 11/06/2019 12:00:00 AM EDT [facility] (Ammir Rico Physician) Name Value Range Interpretation Code Description Data Jigna rce(s) Supporting Document(s ) LYME TOTAL 0.1 Normal (applies to [facility] (Am rosa m IGG/IGM non-numeric results) Rico Physician) ID Date Data Source [id number] 11/06/2019 12:00:00 AM EDT [facility] (Ammir Rico Physician) Name Value Range Interpretation Description Data Sup porting Code Source(s) Document(s ) TOTAL IGE 109 kU/L Above high [facility] normal (Ammir Rico Physician) OAK (T7) IGE <0.10 Normal (applies [facility] to non-numeric (Ammir results) Rico Physician) MULBERRY (T70) IGE <0.10 Normal (applies MEDGE N to non-numeric (Ammir results) Rico Physician) BERMUDA GRASS (G2) <0.10 Normal (applies MEDGE N IGE to non-numeric (Ammir results) Rico Physician) TUAN GRASS (G6) <0.10 Normal (applies MEDGE N IGE to non-numeric (Ammir results) Rico Physician) COMMON RAGWEED WEED <0.10 Normal (applies MEDG EN to non-numeric (Ammir results) Rico Physician) MUGWORT (W6) IGE <0.10 Normal (applies [facility] to non-numeric (Ammir results) Rico Physician) DERMATOPHAGOIDES <0.10 Normal (applies [facility] FARINAE to non-numeric (Ammir results) Rico Physician) ROUGH PIGWEED (W14) <0.10 Normal (applies MEDG EN IGE to non-numeric (Ammir results) Rico Physician) CAT EPITHEL. & <0.10 Normal (applies [facility] DANDER IGE to non-numeric (Ammir results) Rico Physician) DOG DANDER (E5) IGE <0.10 Normal (applies MEDG EN to non-numeric (Ammir results) Rico Physician) COCKROACH (I6) IGE <0.10 Normal (applies MEDGE N to non-numeric (Ammir results) Rico Physician) PENICILLIUM NOTATUM <0.10 Normal (applies MEDG EN (M1) to non-numeric (Ammir results) Rico Physician) CLADOSPORIUM <0.10 Normal (applies [facility] HERBARUM(M2) IGE to non-numeric (Ammir results) Rico Physician) ASPERGILLUS <0.10 Normal (applies [facility] FUMIGATUS (M3 to non-numeric (Ammir results) Rico Physician) ALTERNARIA <0.10 Normal (applies [facility] ALTERNATA (M6) to non-numeric (Ammir results) Rico Physician) MAPLE (BOX <0.10 Normal (applies MED[facility] ELEDER)(T1)IGE to non-numeric (Ammir results) Rico Physician) BIRCH (T3) IGE <0.10 Normal (applies [facility] to non-numeric (Ammir results) Rico Physician) M[place] (T6) <0.10 Normal (applies MEDG EN IGE to non-numeric (Ammir results) Rico Physician) ELM (T8) IGE <0.10 Normal (applies [facility] to non-numeric (Ammir results) Rico Physician) [place] T[place] (T10) <0.10 Normal (applies [facility] IGE to non-numeric (Ammir results) Rico Physician) [place] (T11) IGE <0.10 Normal (applies MEDGE N to non-numeric (Ammir results) Rico Physician) [place] (T14) <0.10 Normal (applies [facility] IGE to non-numeric (Ammir results) Rico Physician) [place] (T15) IGE <0.10 Normal (applies MEDG EN to non-numeric (Ammir results) Rico Physician) D. PTERONYS <0.10 Normal (applies [facility] SINUS(D1) IGE to non-numeric (Ammir results) Rico Physician) SHEEP SORREL (W18) <0.10 Normal (applies MEDGE N IGE to non-numeric (Ammir results) Rico Physician) MOUSE UR PROT (E72) <0.10 Normal (applies MEDG EN IGE to non-numeric (Ammir results) Rico Physician) ID Date Data Source [id number] 11/06/2019 12:00:00 AM EDT [facility] (Ammir Rico Physician) Name Value Range Interpretation Code Description Data Jigna rce(s) Supporting Document(s ) EGG WHITE <0.10 Normal (applies to [facility] (Amm ir (F1) IGE non-numeric Rico results) Physician) MILK (F2) <0.10 Normal (applies to [facility] (Amm ir IGE non-numeric Rico results) Physician) CODFISH (F3) <0.10 Normal (applies to [facility] ( Ammir IGE non-numeric Rico results) Physician) WHEAT (F4) <0.10 Normal (applies to [facility] (Am rosa m IGE non-numeric Rico results) Physician) MAIZE / CORN <0.10 Normal (applies to [facility] ( Ammir (F8) IGE non-numeric Rico results) Physician) SESAME SEED <0.10 Normal (applies to [facility] (A mmir (F10) IGE non-numeric Rico results) Physician) SOYBEAN <0.10 Normal (applies to [facility] (Amm ir (F14) IGE non-numeric Rico results) Physician) PEANUT (F13) <0.10 Normal (applies to [facility] ( Ammir IGE non-numeric Rico results) Physician) SHRIMP (F24) <0.10 Normal (applies to [facility] ( Ammir IGE non-numeric Rico results) Physician) SCALLOP <0.10 Normal (applies to [facility] (Amm ir (F338) IGE non-numeric Rico results) Physician) WAL[place] <0.10 Normal (applies to [facility] (Amm ir (F256) IGE non-numeric Rico results) Physician) SALMON (F41) <0.10 Normal (applies to [facility] ( Ammir IGE non-numeric Irco results) Physician) TUNA (F40) <0.10 Normal (applies to [facility] (Am rosa m IGE non-numeric Rico results) Physician) HAZELNUT(F17 <0.10 Normal (applies to [facility] ( Ammir ) IGE non-numeric Rico results) Physician) CASHEW <0.10 Normal (applies to [facility] (Amm ir NUT(F202) non-numeric Rico IGE results) Physician) ALMOND <0.10 Normal (applies to [facility] (Amm ir (F20)IGE non-numeric Rico results) Physician) ID Date Data Source [id number] 10/30/2019 10:17:00 AM EDT [facility] Name Value Range Interpretation Code Description Data Jigna rce(s) Supporting Document(s ) SARS-COV-2 [facility] This lab was ordered by [employer] and reported by [facility]. ID Date Data Source [id number] 10/30/2019 12:00:00 AM EDT [facility] (Ammir Rico Physician) Name Value Range Interpretation Description Data Sup porting Code Source(s) Document(s ) SARS-COV- Not Detected Normal (applies to [facility] ( Ammir 2 non-numeric Rico results) Physician) ID Date Data Source [id number] 10/19/2019 12:00:00 AM EDT [facility] (Ammir Rico Physician) Name Value Range Interpretation Code Description Data Jigna rce(s) Supporting Document(s ) TROPONIN I <0.01 Normal (applies to [facility] (Am rosa m non-numeric results) Rico Physician) ID Date Data Source [id number] 10/19/2019 12:00:00 AM EDT [facility] (Ammir [facility] Physician) Name Value Range Interpretation Description Data Sup porting Code Source(s) Document(s ) TSH,3RD 2.05 Normal (applies to [facility] GENERATION uIU/mL non-numeric (Ammir results) [facility] Physician) T4 FREE, 1.37 Normal (applies to [facility] THYROXINE ng/dL non-numeric (Ammir results) [facility] Physician) ID Date Data Source [id number] 10/19/2019 12:00:00 AM EDT [facility] ([facility]mm[facility] Physician) Name Value Range Interpretation Description Data Sup porting Code Source(s) Document(s ) GLUCOSE 90 mg/dL Normal (applies [facility] NONFASTING,SERUM to non-numeric (Ammir results) [facility] Physician) SODIUM, SERUM 143 Normal (applies [facility] mEq/L to non-numeric (Ammir results) [facility] Physician) POTASSIUM, SERUM 4.1 Normal (applies [facility] mEq/L to non-numeric (Ammir results) [facility] Physician) CHLORIDE, SERUM 105 Normal (applies [facility] mEq/L to non-numeric (Ammir results) [facility] Physician) Carbon dioxide 30 mEq/L Normal (applies [facility] [VFr/PPres] in to non-numeric (Ammir Gas delivery results) [facility] system Physician) Anion gap in 12.1 Normal (applies [facility] Body fluid mEq/L to non-numeric (Ammir results) [facility] Physician) BLOOD UREA 13 mg/dL Normal (applies [facility] NITROGEN to non-numeric (Ammir results) [facility] Physician) CREATININE, 0.60 Normal (applies [facility] SERUM mg/dL to non-numeric (Ammir results) [facility] Physician) TOTAL PROTEIN 7.5 g/dL Normal (applies [facility] to non-numeric (Ammir results) [facility] Physician) CALCIUM, SERUM 10.0 Normal (applies [facility] mg/dL to non-numeric (Ammir results) [facility] Physician) Microalbumin 4.7 g/dL Normal (applies [facility] [Mass/time] in to non-numeric (Ammir Urine collected results) Rico for unspecified Physician) duration Globulin 2.8 gldl Normal (applies [facility] [Mass/time] in to non-numeric (Ammir 24 hour Urine results) [facility] Physician) A/G RATIO 1.68 Normal (applies [facility] g/dl to non-numeric (Ammir results) [facility] Physician) BILIRUBIN, TOTAL 0.8 Normal (applies [facility] mg/dL to non-numeric (Ammir results) [facility] Physician) ALKALINE 87 U/L Normal (applies [facility] PHOSPHATASE, ALP to non-numeric (Ammir results) [facility] Physician) ALT (SGPT) 18 U/L Normal (applies [facility] to non-numeric (Ammir results) [facility] Physician) AST 23 U/L Normal (applies [facility] to non-numeric (Ammir results) [facility] Physician) EGFR NON AFR 104 Normal (applies [facility] BRITISH mL/min/1 to non-numeric (Ammir .73m2 results) [facility] Physician) EGFR AFR 125 Normal (applies [facility] BRITISH mL/min/1 to non-numeric (Ammir .73m2 results) [facility] Physician) ID Date Data Source [id number] 10/19/2019 12:00:00 AM EDT [facility] ([facility]ician) Name Value Range Interpretation Description Data Sup porting Code Source(s) Document(s ) Hemoglobin A1c 5.2 % Normal (applies to [facility] (Ammir in Blood non-numeric Rico results) Physician) ID Date Data Source [id number] 10/19/2019 12:00:00 AM EDT [facility] ([facility] Physician) Name Value Range Interpretation Description Data Sup porting Code Source(s) Document(s ) WBC 7.5 Normal (applies [facility] 10(3)/uL to non-numeric (Ammir results) [facility] Physician) Hemoglobin 13.2 g/dL Normal (applies [facility] [Mass/volume] to non-numeric (Ammir in Mixed venous results) Rico blood by Physician) Oximetry RBC 4.4 Normal (applies [facility] 10(6)/uL to non-numeric (Ammir results) [facility] Physician) Hematocrit 39.1 % Normal (applies [facility] [Pure volume to non-numeric (Ammir fraction] of results) [facility] Blood by Physician) Automated count MCV 88.9 fL Normal (applies [facility] to non-numeric (Ammir results) [facility] Physician) MCH 30 pg Normal (applies [facility] to non-numeric (Ammir results) [facility] Physician) MCHC 34 g/dL Normal (applies [facility] to non-numeric (Ammir results) [facility] Physician) RDWCV 12.4 % Normal (applies [facility] to non-numeric (Ammir results) [facility] Physician) RDWSD 40.6 fL Normal (applies [facility] to non-numeric (Ammir results) [facility] Physician) Platelet Count 270 Normal (applies [facility] 10(3)/uL to non-numeric (Ammir results) [facility] Physician) MPV 10.1 fL Normal (applies [facility] to non-numeric (Ammir results) [facility] Physician) Neutrophil Abs 4.55 Normal (applies [facility] 10(3)/uL to non-numeric (Ammir results) [facility] Physician) Lymphocyte Abs 2.07 Normal (applies [facility] 10(3)/uL to non-numeric (Ammir results) [facility] Physician) Monocyte Abs 0.66 Normal (applies [facility] 10(3)/uL to non-numeric (Ammir results) [facility] Physician) Eosinophil Abs 0.18 Normal (applies [facility] 10(3)/uL to non-numeric (Ammir results) [facility] Physician) Basophil Abs 0.05 Normal (applies [facility] 10(3)/uL to non-numeric (Ammir results) [facility] Physician) Immature 0.02 Normal (applies [facility] Granulocyte Abs 10(3)/uL to non-numeric (Ammir results) [facility] Physician) Neutrophil % 60.30 % Normal (applies [facility] to non-numeric (Ammir results) [facility] Physician) Lymphocyte % 28 % Normal (applies [facility] to non-numeric (Ammir results) [facility] Physician) Monocyte % 8.8 % Normal (applies [facility] to non-numeric (Ammir results) [facility] Physician) Eosinophil % 2.4 % Normal (applies [facility] to non-numeric (Ammir results) [facility] Physician) Basophil % 0.7 % Normal (applies [facility] to non-numeric (Ammir results) [facility] Physician) Immature 0.30 % Normal (applies [facility] Granulocyte % to non-numeric (Ammir results) Rico Physician) NRBC % 0.0 % Normal (applies [facility] to non-numeric (Ammir results) [facility] Physician) NRBC Abs 0.00 Normal (applies [facility] 10(3)/uL to non-numeric (Ammir results) [facility] Physician) ID Date Data Source [id number] 10/19/2019 12:00:00 AM EDT [facility] ([facility] Physician) Name Value Range Interpretation Description Data Sup porting Code Source(s) Document(s ) Cholesterol 189 Normal (applies [facility] [Moles/volume] mg/dL to non-numeric (Ammir in Pericardial results) [facility] fluid Physician) LDL CALCULATION 105.8 Normal (applies [facility] mg/dL to non-numeric (Ammir results) [facility] Physician) CHOL/HDL RATIO 3.15 Normal (applies [facility] ratio to non-numeric (Ammir results) [facility] Physician) HDL CHOLESTEROL 60 mg/dL Normal (applies [facility] to non-numeric (Ammir results) [facility] Physician) VLDL CALCULATION 23.2 Normal (applies [facility] mg/dl to non-numeric (Ammir results) [facility] Physician) TRIGLYCERIDES 116 Normal (applies [facility] mg/dL to non-numeric (Ammir results) [facility] Physician) ID Date Data Source [id number] 05/17/2019 12:00:00 AM EST [facility] ([facility]) Name Value Range Interpretation Description Data Sup porting Code Source(s) Document(s ) ORGANISM Abnormal (applies [facility] to non-numeric (Ammir results) [facility] Physician) Comment Normal (applies [facility] [Interpretation] to non-numeric (Ammir Left eye Narrative results) [facility] Ophthalmometer Physician) ID Date Data Source [id number] 05/17/2019 12:00:00 AM EST [facility] ([facility] Physician) Name Value Range Interpretation Description Data Sup porting Code Source(s) Document(s ) GLUCOSE UA NEGATIVE Normal (applies [facility] to non-numeric (Ammir results) [facility] Physician) BILIRUBIN, TOTAL NEGATIVE Normal (applies [facility] to non-numeric (Ammir results) [facility] Physician) Ketones NEGATIVE Normal (applies [facility] [Presence] in to non-numeric (Ammir Blood by Tablet results) [facility] Physician) Blood [Presence] SMALL Abnormal [facility] in Urine by (applies to (Ammir Visual non-numeric Rico results) Physician) Specific gravity 1.008 SG Normal (applies [facility] of Pericardial units to non-numeric (Ammir fluid by results) [facility] Refractometry Physician) pH of Lower 5 Ph units Normal (applies [facility] respiratory to non-numeric (Ammir specimen results) [facility] Physician) Protein NEGATIVE Normal (applies [facility] [Mass/volume] in to non-numeric (Ammir Lower results) Rico respiratory Physician) specimen Nitrite NEGATIVE Normal (applies [facility] [Presence] in to non-numeric (Ammir Urine by Test results) Rico strip Physician) Urobilinogen 0-2.0 Normal (applies [facility] [Presence] in to non-numeric (Ammir Urine by results) Rico Automated test Physician) strip Leukocyte LARGE Abnormal [facility] esterase (applies to (Ammir [Presence] in non-numeric Rico Body fluid by results) Physician) Automated test strip Color of YELLOW Normal (applies [facility] Peritoneal to non-numeric (Ammir dialysis fluid results) Rico Physician) TRANSPARENCY SLIGHTLY-CL Abnormal [facility] OUDY (applies to (Ammir non-numeric Rico results) Physician) WBC`S 11-20 Abnormal [facility] (applies to (Ammir non-numeric Rico results) Physician) RBC`S 0-4 Normal (applies [facility] to non-numeric (Ammir results) [facility] Physician) SQUAMOUS FEW Normal (applies [facility] EPITHELIAL to non-numeric (Ammir results) [facility] Physician) MUCOUS FEW Normal (applies [facility] to non-numeric (Ammir results) [facility] Physician) ID Date Data Source [id number] 05/09/2019 12:00:00 AM EST [facility] ([facility] Physician) Name Value Range Interpretation Description Data Sup porting Code Source(s) Document(s ) GLUCOSE 88 mg/dL Normal (applies [facility] NONFASTING,SERUM to non-numeric (Ammir results) [facility] Physician) SODIUM, SERUM 142 Normal (applies [facility] mEq/L to non-numeric (Ammir results) [facility] Physician) POTASSIUM, SERUM 5.0 Normal (applies [facility] mEq/L to non-numeric (Ammir results) [facility] Physician) CHLORIDE, SERUM 103 Normal (applies [facility] mEq/L to non-numeric (Ammir results) [facility] Physician) Carbon dioxide 31 mEq/L Normal (applies [facility] [VFr/PPres] in to non-numeric (Ammir Gas delivery results) [facility] system Physician) Anion gap in 13 mEq/L Normal (applies [facility] Body fluid to non-numeric (Ammir results) [facility] Physician) BLOOD UREA 13 mg/dL Normal (applies [facility] NITROGEN to non-numeric (Ammir results) [facility] Physician) CREATININE, 0.60 Normal (applies [facility] SERUM mg/dL to non-numeric (Ammir results) [facility] Physician) CALCIUM, SERUM 9.5 Normal (applies [facility] mg/dL to non-numeric (Ammir results) [facility] Physician) TOTAL PROTEIN 7.1 g/dL Normal (applies [facility] to non-numeric (Ammir results) [facility] Physician) Microalbumin 4.7 g/dL Normal (applies [facility] [Mass/time] in to non-numeric (Ammir Urine collected results) Rico for unspecified Physician) duration Globulin 2.4 gldl Normal (applies [facility] [Mass/time] in to non-numeric (Ammir 24 hour Urine results) [facility] Physician) A/G RATIO 1.96 Normal (applies [facility] g/dl to non-numeric (Ammir results) [facility] Physician) BILIRUBIN, TOTAL 0.5 Normal (applies [facility] mg/dL to non-numeric (Ammir results) [facility] Physician) ALKALINE 93 U/L Normal (applies [facility] PHOSPHATASE, ALP to non-numeric (Ammir results) [facility] Physician) ALT (SGPT) 18 U/L Normal (applies [facility] to non-numeric (Ammir results) [facility] Physician) AST 18 U/L Normal (applies [facility] to non-numeric (Ammir results) [facility] Physician) EGFR NON AFR 104 Normal (applies [facility] BRITISH mL/min/1 to non-numeric (Ammir .73m2 results) [facility] Physician) EGFR AFR 126 Normal (applies [facility] BRITISH mL/min/1 to non-numeric (Ammir .73m2 results) [facility] Physician) ID Date Data Source [id number] 05/09/2019 12:00:00 AM EST [facility] ([facility]mm[facility] Physician) Name Value Range Interpretation Description Data Sup porting Code Source(s) Document(s ) WBC 6.5 Normal (applies [facility] 10(3)/uL to non-numeric (Ammir results) [facility] Physician) RBC 4.6 Normal (applies [facility] 10(6)/uL to non-numeric (Ammir results) [facility] Physician) Hemoglobin 13.7 g/dL Normal (applies [facility] [Mass/volume] to non-numeric (Ammir in Mixed venous results) Rico blood by Physician) Oximetry Hematocrit 40.7 % Normal (applies [facility] [Pure volume to non-numeric (Ammir fraction] of results) [facility] Blood by Physician) Automated count MCV 89.1 fL Normal (applies [facility] to non-numeric (Ammir results) [facility] Physician) MCH 30 pg Normal (applies [facility] to non-numeric (Ammir results) [facility] Physician) MCHC 34 g/dL Normal (applies [facility] to non-numeric (Ammir results) [facility] Physician) RDWSD 38.7 fL Normal (applies [facility] to non-numeric (Ammir results) [facility] Physician) RDWCV 12.0 % Normal (applies [facility] to non-numeric (Ammir results) [facility] Physician) MPV 9.9 fL Normal (applies [facility] to non-numeric (Ammir results) [facility] Physician) Platelet Count 283 Normal (applies [facility] 10(3)/uL to non-numeric (Ammir results) [facility] Physician) Neutrophil Abs 3.11 Normal (applies [facility] 10(3)/uL to non-numeric (Ammir results) [facility] Physician) Lymphocyte Abs 2.14 Normal (applies [facility] 10(3)/uL to non-numeric (Ammir results) [facility] Physician) Monocyte Abs 0.38 Normal (applies [facility] 10(3)/uL to non-numeric (Ammir results) [facility] Physician) Eosinophil Abs 0.74 Above high normal [facility] 10(3)/uL (Ammir Rico Physician) Basophil Abs 0.08 Above high normal [facility] 10(3)/uL (Ammir Rico Physician) Immature 0.01 Normal (applies [facility] Granulocyte Abs 10(3)/uL to non-numeric (Ammir results) [facility] Physician) Neutrophil % 48.10 % Normal (applies [facility] to non-numeric (Ammir results) [facility] Physician) Lymphocyte % 33 % Normal (applies [facility] to non-numeric (Ammir results) [facility] Physician) Monocyte % 5.9 % Normal (applies [facility] to non-numeric (Ammir results) [facility] Physician) Eosinophil % 11.5 % Above high normal [facility] (Ammir [facility] Physician) Basophil % 1.2 % Normal (applies [facility] to non-numeric (Ammir results) [facility] Physician) Immature 0.20 % Normal (applies [facility] Granulocyte % to non-numeric (Ammir results) [facility] Physician) NRBC % 0.0 % Normal (applies [facility] to non-numeric (Ammir results) [facility] Physician) NRBC Abs 0.00 Normal (applies [facility] 10(3)/uL to non-numeric (Ammir results) [facility] Physician) ID Date Data Source [id number] 05/09/2019 12:00:00 AM EST [facility] ([facility] Physician) Name Value Range Interpretation Code Description Data Jigna rce(s) Supporting Document(s ) IRON, 78 ug/dL Normal (applies to [facility] (Amm ir TOTAL non-numeric Rico results) Physician) ID Date Data Source [id number] 05/09/2019 12:00:00 AM EST [facility] ([facility]mm[facility] Physician) Name Value Range Interpretation Description Data Sup porting Code Source(s) Document(s ) Cholesterol 198 Normal (applies [facility] [Moles/volume] mg/dL to non-numeric (Ammir in Pericardial results) Rico fluid Physician) LDL CALCULATION 106.8 Normal (applies [facility] mg/dL to non-numeric (Ammir results) [facility] Physician) CHOL/HDL RATIO 3.36 Normal (applies [facility] ratio to non-numeric (Ammir results) Rico Physician) HDL CHOLESTEROL 59 mg/dL Normal (applies [facility] to non-numeric (Ammir results) Rico Physician) VLDL CALCULATION 32.2 Normal (applies [facility] mg/dl to non-numeric (Ammir results) Rico Physician) TRIGLYCERIDES 161 Above high normal [facility] mg/dL (Ammir Rico Physician) ID Date Data Source [id number] 05/09/2019 12:00:00 AM EST [facility] (Ammir [facility] Physician) Name Value Range Interpretation Description Data Sup porting Code Source(s) Document(s ) Transferrin 242 mg/dL Normal (applies [facility] [Mass/time] in to non-numeric (Ammir 24 hour Urine results) Rico Physician) TIBC 339.3 Normal (applies [facility] ug/dL to non-numeric (Ammir results) Rico Physician) UIBC 261.3 Normal (applies [facility] ug/dL to non-numeric (Ammir results) Rico Physician) %SATURATION 23.0 % Normal (applies [facility] to non-numeric (Ammir results) Rico Physician) ID Date Data Source [id number] 05/09/2019 12:00:00 AM EST [facility] (Ammir [facility] Physician) Name Value Range Interpretation Description Data Sup porting Code Source(s) Document(s ) Ferritin 219.2 Normal (applies to [facility] (Amm ir [Interpretat ng/mL non-numeric Rico ion] in results) Physician) Blood ID Date Data Source [id number] 05/09/2019 12:00:00 AM EST [facility] (Ammir [facility] Physician) Name Value Range Interpretation Description Data Sup porting Code Source(s) Document(s ) T4 FREE, 1.52 Normal (applies to [facility] THYROXINE ng/dL non-numeric (Ammir results) Rico Physician) TSH,3RD 1.18 Normal (applies to [facility] GENERATION uIU/mL non-numeric (Ammir results) Rico Physician) ID Date Data Source [id number] 05/09/2019 12:00:00 AM EST [facility] (Ammir [facility] Physician) Name Value Range Interpretation Description Data Sup porting Code Source(s) Document(s ) GLUCOSE UA NEGATIVE Normal (applies [facility] to non-numeric (Ammir results) Rico Physician) BILIRUBIN, TOTAL NEGATIVE Normal (applies [facility] to non-numeric (Ammir results) Rico Physician) Specific gravity 1.016 SG Normal (applies [facility] of Pericardial units to non-numeric (Ammir fluid by results) Rico Refractometry Physician) Ketones NEGATIVE Normal (applies [facility] [Presence] in to non-numeric (Ammir Blood by Tablet results) Rico Physician) Blood [Presence] NEGATIVE Normal (applies [facility] in Urine by to non-numeric (Ammir Visual results) Rico Physician) Protein NEGATIVE Normal (applies [facility] [Mass/volume] in to non-numeric (Ammir Lower results) Rico respiratory Physician) specimen pH of Lower 7 Ph units Normal (applies [facility] respiratory to non-numeric (Ammir specimen results) Rico Physician) Urobilinogen 0-2.0 Normal (applies [facility] [Presence] in to non-numeric (Ammir Urine by results) Rico Automated test Physician) strip Nitrite NEGATIVE Normal (applies [facility] [Presence] in to non-numeric (Ammir Urine by Test results) Rico strip Physician) Leukocyte LARGE Abnormal [facility] esterase (applies to (Ammir [Presence] in non-numeric Rico Body fluid by results) Physician) Automated test strip Color of YELLOW Normal (applies [facility] Peritoneal to non-numeric (Ammir dialysis fluid results) Rico Physician) TRANSPARENCY CLOUDY Abnormal [facility] (applies to (Ammir non-numeric Rico results) Physician) WBC`S 0-5 Normal (applies [facility] to non-numeric (Ammir results) Rico Physician) Bacteria MANY Abnormal [facility] [Presence] in (applies to (Ammir Prostatic fluid non-numeric Rico by Light results) Physician) microscopy SQUAMOUS FEW Normal (applies [facility] EPITHELIAL to non-numeric (Ammir results) Rico Physician) MUCOUS FEW Normal (applies [facility] to non-numeric (Ammir results) Rico Physician) ID Date Data Source [id number] 08/30/2018 12:00:00 AM EDT [facility] (Ammir [facility] Physician) Name Value Range Interpretation Code Description Data Supporting Source(s) Document(s ) MAGNESIUM, 2.2 mg/dL Normal (applies to [facility] (Am rosa m SERUM non-numeric Rico results) Physician) ID Date Data Source [id number] 08/30/2018 12:00:00 AM EDT [facility] (Ammir [facility] Physician) Name Value Range Interpretation Description Data Sup porting Code Source(s) Document(s ) SODIUM, SERUM 140 Normal (applies [facility] mEq/L to non-numeric (Ammir results) [facility] Physician) GLUCOSE 86 mg/dL Normal (applies [facility] NONFASTING,SERUM to non-numeric (Ammir results) Rico Physician) POTASSIUM, SERUM 4.3 Normal (applies [facility] mEq/L to non-numeric (Ammir results) Rico Physician) Carbon dioxide 29 mEq/L Normal (applies [facility] [VFr/PPres] in to non-numeric (Ammir Gas delivery results) Rico system Physician) CHLORIDE, SERUM 104 Normal (applies [facility] mEq/L to non-numeric (Ammir results) Rico Physician) Anion gap in 11.3 Normal (applies [facility] Body fluid mEq/L to non-numeric (Ammir results) Rico Physician) BLOOD UREA 14 mg/dL Normal (applies [facility] NITROGEN to non-numeric (Ammir results) Rico Physician) CREATININE, 0.70 Normal (applies [facility] SERUM mg/dL to non-numeric (Ammir results) Rico Physician) CALCIUM, SERUM 9.5 Normal (applies [facility] mg/dL to non-numeric (Ammir results) Rico Physician) TOTAL PROTEIN 7.0 g/dL Normal (applies [facility] to non-numeric (Ammir results) Rico Physician) Globulin 2.4 gldl Normal (applies [facility] [Mass/time] in to non-numeric (Ammir 24 hour Urine results) Rico Physician) Microalbumin 4.6 g/dL Normal (applies [facility] [Mass/time] in to non-numeric (Ammir Urine collected results) Rico for unspecified Physician) duration A/G RATIO 1.92 Normal (applies [facility] g/dl to non-numeric (Ammir results) Rico Physician) BILIRUBIN, TOTAL 0.5 Normal (applies [facility] mg/dL to non-numeric (Ammir results) Rico Physician) ALKALINE 85 U/L Normal (applies [facility] PHOSPHATASE, ALP to non-numeric (Ammir results) Rico Physician) ALT (SGPT) 23 U/L Normal (applies [facility] to non-numeric (Ammir results) Rico Physician) EGFR NON AFR 87 Above high normal [facility] BRITISH mL/min/1 (Ammir .73m2 Rico Physician) AST 23 U/L Normal (applies [facility] to non-numeric (Ammir results) Rico Physician) EGFR AFR 105 Above high normal [facility] BRITISH mL/min/1 (Ammir .73m2 Rico Physician) ID Date Data Source [id number] 08/30/2018 12:00:00 AM EDT [facility] (Ammir Rico Physician) Name Value Range Interpretation Code Description Data Supporting Source(s) Document(s ) CREATINE 75 U/L Normal (applies to [facility] (Amm ir KINASE (CK) non-numeric Rico results) Physician) ID Date Data Source [id number] 08/30/2018 12:00:00 AM EDT [facility] (Ammir Rico Physician) Name Value Range Interpretation Description Data Sup porting Code Source(s) Document(s ) Hemoglobin A1c 5.2 % Normal (applies to [facility] (Ammir in Blood non-numeric Rico results) Physician) ID Date Data Source [id number] 08/30/2018 12:00:00 AM EDT [facility] (Ammir Rico Physician) Name Value Range Interpretation Description Data Sup porting Code Source(s) Document(s ) WBC 4.8 Normal (applies [facility] 10(3)/uL to non-numeric (Ammir results) Rico Physician) RBC 4.4 Normal (applies [facility] 10(6)/uL to non-numeric (Ammir results) Rico Physician) Hemoglobin 13.6 g/dL Normal (applies [facility] [Mass/volume] to non-numeric (Ammir in Mixed venous results) Rico blood by Physician) Oximetry Hematocrit 39.9 % Normal (applies [facility] [Pure volume to non-numeric (Ammir fraction] of results) Rico Blood by Physician) Automated count MCV 90.1 fL Normal (applies [facility] to non-numeric (Ammir results) Rico Physician) MCH 31 pg Normal (applies [facility] to non-numeric (Ammir results) Rico Physician) MCHC 34 g/dL Normal (applies [facility] to non-numeric (Ammir results) Rico Physician) RDWSD 39.9 fL Normal (applies [facility] to non-numeric (Ammir results) Rico Physician) RDWCV 12.3 % Normal (applies [facility] to non-numeric (Ammir results) Rico Physician) Platelet Count 290 Normal (applies [facility] 10(3)/uL to non-numeric (Ammir results) Rico Physician) MPV 10.2 fL Normal (applies [facility] to non-numeric (Ammir results) Rico Physician) Neutrophil Abs 2.38 Normal (applies [facility] 10(3)/uL to non-numeric (Ammir results) Rico Physician) Lymphocyte Abs 1.97 Normal (applies [facility] 10(3)/uL to non-numeric (Ammir results) Rico Physician) Monocyte Abs 0.32 Normal (applies [facility] 10(3)/uL to non-numeric (Ammir results) Rico Physician) Eosinophil Abs 0.09 Normal (applies [facility] 10(3)/uL to non-numeric (Ammir results) Rico Physician) Neutrophil % 49.20 % Normal (applies [facility] to non-numeric (Ammir results) Rico Physician) Lymphocyte % 41 % Normal (applies [facility] to non-numeric (Ammir results) Rico Physician) Monocyte % 6.6 % Normal (applies [facility] to non-numeric (Ammir results) Rico Physician) Eosinophil % 1.9 % Normal (applies [facility] to non-numeric (Ammir results) Rico Physician) Basophil % 1.0 % Normal (applies [facility] to non-numeric (Ammir results) Rico Physician) Immature 0.60 % Above high normal [facility] Granulocyte % (Ammir Rico Physician) ID Date Data Source [id number] 08/30/2018 12:00:00 AM EDT [facility] (Ammir Rico Physician) Name Value Range Interpretation Code Description Data Jigna rce(s) Supporting Document(s ) Aldolase 3.0 Normal (applies to [facility] (Amm ir [Enzymatic non-numeric Rico activity/mass results) Physician) ] in Red Blood Cells ID Date Data Source [id number] 08/30/2018 12:00:00 AM EDT [facility] (Ammir Rico Physician) Name Value Range Interpretation Code Description Data Jigna rce(s) Supporting Document(s ) MYOGLOBIN, <30 Normal (applies to [facility] (Am rosa m SERUM non-numeric results) Rico Physician) ID Date Data Source [id number] 08/30/2018 12:00:00 AM EDT [facility] (Ammir Rico Physician) Name Value Range Interpretation Description Data Sup porting Code Source(s) Document(s ) VITAMIN D 16.79 Below low normal [facility] (Ammir 25-HYDROXY ng/mL Rico Physician) ID Date Data Source [id number] 08/30/2018 12:00:00 AM EDT [facility] (Ammir Rico Physician) Name Value Range Interpretation Code Description Data Jigna rce(s) Supporting Document(s ) ESR 11 mm/hr Normal (applies to [facility] (Amm ir non-numeric results) Rico Physician) ID Date Data Source [id number] 08/30/2018 12:00:00 AM EDT [facility] (Ammir Rico Physician) Name Value Range Interpretation Description Data Sup porting Code Source(s) Document(s ) RHEUMATOID 6.90 Normal (applies to [facility] FACTOR IGG/IGM IU/mL non-numeric (Ammir results) Rico Physician) ID Date Data Source [id number] 08/30/2018 12:00:00 AM EDT [facility] (Ammir Rico Physician) Name Value Range Interpretation Code Description Data Jigna rce(s) Supporting Document(s ) URIC ACID 4.2 mg/dL Normal (applies to [facility] (Amm ir non-numeric Rico results) Physician) ID Date Data Source [id number] 08/30/2018 12:00:00 AM EDT [facility] (Ammir Rico Physician) Name Value Range Interpretation Code Description Data Jigna rce(s) Supporting Document(s ) C-REACTIVE <0.4 Normal (applies to [facility] (Am rosa m PROTEIN non-numeric Rico (INFL) results) Physician) ID Date Data Source [id number] 08/30/2018 12:00:00 AM EDT [facility] (Ammir Rico Physician) Name Value Range Interpretation Code Description Data Jigna rce(s) Supporting Document(s ) dsDNA 1.5 IU/ml Normal (applies to [facility] (Amm ir non-numeric results) Rico Physician) ID Date Data Source [id number] 08/30/2018 12:00:00 AM EDT [facility] (Ammir Rico Physician) Name Value Range Interpretation Description Data Sup porting Code Source(s) Document(s ) ASO 62.2 Normal (applies [facility] ANTISTREPTOLYSIN O IU/mL to non-numeric (Ammir AB results) Rico Physician) ID Date Data Source [id number] 08/30/2018 12:00:00 AM EDT [facility] (Ammir Rico Physician) Name Value Range Interpretation Code Description Data Jigna rce(s) Supporting Document(s ) TRISTIAN 0.1 Ratio Normal (applies to [facility] (Amm ir Screen(Sy non-numeric Rico mphony) results) Physician) ID Date Data Source [id number] 08/30/2018 12:00:00 AM EDT [facility] (Ammir Rico Physician) Name Value Range Interpretation Description Data Sup porting Code Source(s) Document(s ) FOLATE SERUM 22.4 Above high normal [facility] (A mmir ng/mL Rico Physician) VITAMIN B12 290 pg/mL Normal (applies to [facility] (A mmir non-numeric Rico results) Physician) ID Date Data Source [id number] 08/30/2018 12:00:00 AM EDT [facility] (Ammir Rico Physician) Name Value Range Interpretation Description Data Sup porting Code Source(s) Document(s ) TSH,3RD 3.02 Normal (applies to [facility] GENERATION uIU/mL non-numeric (Ammir results) Rico Physician) T4 FREE, 1.23 Normal (applies to [facility] THYROXINE ng/dL non-numeric (Ammir results) Rico Physician) ID Date Data Source [id number] 02/20/2018 12:00:00 AM EDT [facility] (Ammir Rico Physician) Name Value Range Interpretation Description Data Sup porting Code Source(s) Document(s ) TEST Normal (applies to [facility] CLARIFICATION non-numeric (Ammir results) Rico Physician) ID Date Data Source [id number] 02/20/2018 12:00:00 AM EDT [facility] (Ammir Rico Physician) Name Value Range Interpretation Description Data Sup porting Code Source(s) Document(s ) SED RATE,MOD 11 mm/h Normal (applies to [facility] WESTERGREN non-numeric (Ammir results) Rico Physician) C-REACTIVE 1.5 mg/L Normal (applies to [facility] PROTEIN non-numeric (Ammir results) Rico Physician) ID Date Data Source [id number] 02/20/2018 12:00:00 AM EDT [facility] (Ammir Rico Physician) Name Value Range Interpretation Description Data Sup porting Code Source(s) Document(s ) T4 8.3 mcg/dL Normal (applies to [facility] (Am rosa m (THYROXINE) non-numeric Rico , TOTAL results) Physician) TSH 2.71 mIU/L Normal (applies to [facility] (Am rosa m non-numeric Rico results) Physician) T3 UPTAKE 32 % Normal (applies to [facility] (Amm ir non-numeric Rico results) Physician) FREE T4 2.7 Normal (applies to [facility] (Amm ir INDEX (T7) non-numeric Rico results) Physician) T3,TOTAL 106 ng/dL Normal (applies to [facility] (Amm ir non-numeric Rico results) Physician) ID Date Data Source [id number] 02/20/2018 12:00:00 AM EDT [facility] (Ammir Rico Physician) Name Value Range Interpretation Description Data Sup porting Code Source(s) Document(s ) Sodium 140 Normal (applies [facility] [Moles/volume] mmol/L to non-numeric (Ammir in Serum, Plasma results) Rico or Blood Physician) Glucose 112 Normal (applies [facility] [Mass/volume] in mg/dL to non-numeric (Ammir Urine collected results) Rico for unspecified Physician) duration Potassium 4.0 Normal (applies [facility] [Mass/volume] in mmol/L to non-numeric (Ammir Blood results) Rico Physician) Chloride 104 Normal (applies [facility] [Moles/volume] mmol/L to non-numeric (Ammir in Serum, Plasma results) Rico or Blood Physician) Carbon dioxide 26 Normal (applies [facility] [VFr/PPres] in mmol/L to non-numeric (Ammir Gas delivery results) Rico system Physician) Urea nitrogen 13 mg/dL Normal (applies [facility] [Moles/volume] to non-numeric (Ammir in Blood results) Rico Physician) BUN/CREATININE 22 Normal (applies [facility] RATIO (calc) to non-numeric (Ammir results) Rico Physician) Creatinine 0.59 Below low normal [facility] [Interpretation] mg/dL (Ammir in Urine Rico Physician) Calcium 9.3 Normal (applies [facility] [Moles/volume] mg/dL to non-numeric (Ammir in Urine results) Rico collected for Physician) unspecified duration PROTEIN, TOTAL 7.4 g/dL Normal (applies [facility] to non-numeric (Ammir results) Rico Physician) Microalbumin 4.3 g/dL Normal (applies [facility] [Mass/time] in to non-numeric (Ammir Urine collected results) Rico for unspecified Physician) duration Globulin 3.1 g/dL Normal (applies [facility] [Mass/time] in (calc) to non-numeric (Ammir 24 hour Urine results) Rico Physician) ALBUMIN/GLOBULIN 1.4 Normal (applies [facility] RATIO (calc) to non-numeric (Ammir results) Rico Physician) Alkaline 66 U/L Normal (applies [facility] phosphatase to non-numeric (Ammir [Enzymatic results) Rico activity/volume] Physician) in Serum, Plasma or Blood BILIRUBIN,TOTAL 0.4 Normal (applies [facility] mg/dL to non-numeric (Ammir results) Rico Physician) AST 16 U/L Normal (applies [facility] to non-numeric (Ammir results) Rico Physician) ALT 12 U/L Normal (applies [facility] to non-numeric (Ammir results) Rico Physician) EGFR NON AFR 91 Normal (applies [facility] BRITISH mL/min/1 to non-numeric (Ammir .73m2 results) Rico Physician) EGFR 105 Normal (applies [facility] BRITISH mL/min/1 to non-numeric (Ammir .73m2 results) Rico Physician) ID Date Data Source [id number] 02/20/2018 12:00:00 AM EDT [facility] (Ammir Rico Physician) Name Value Range Interpretation Description Data Sup porting Code Source(s) Document(s ) CHOLESTEROL,TOTA 199 Normal (applies [facility] L mg/dL to non-numeric (Ammir results) Rico Physician) HDL CHOLESTEROL 47 mg/dL Below low normal [facility] (Ammir Rico Physician) CHOLESTEROL/HDL 4.2 calc Normal (applies [facility] RATIO to non-numeric (Ammir results) Rico Physician) LDL CHOL, 126 Above high normal [facility] CALCULATED mg/dL (Ammir Rico Physician) TRIGLYCERIDES 148 Normal (applies [facility] mg/dL to non-numeric (Ammir results) Rico Physician) NON HDL 152 Above high normal [facility] CHOLESTEROL mg/dL (Ammir (calc) Rico Physician) ID Date Data Source [id number] 02/20/2018 12:00:00 AM EDT [facility] (Ammir Rico Physician) Name Value Range Interpretation Code Description Data Supporting Source(s) Document(s ) CREATININE, 62 mg/dL Normal (applies to [facility] (A mmir RANDOM non-numeric Rico URINE results) Physician) ID Date Data Source [id number] 02/20/2018 12:00:00 AM EDT [facility] (Ammir Rico Physician) Name Value Range Interpretation Description Data Sup porting Code Source(s) Document(s ) WBC 5.2 Normal (applies to [facility] Thous/mcL non-numeric (Ammir results) Rico Physician) RBC 4.29 Normal (applies to [facility] Mill/mcL non-numeric (Ammir results) Rico Physician) Hemoglobin 13.1 g/dL Normal (applies to [facility] [Mass/volume] non-numeric (Ammir in Mixed results) Rico venous blood Physician) by Oximetry Hematocrit 39.1 % Normal (applies to [facility] [Pure volume non-numeric (Ammir fraction] of results) Rico Blood by Physician) Automated count MCV 91.1 fL Normal (applies to [facility] non-numeric (Ammir results) Rico Physician) MCH 30.6 pg Normal (applies to [facility] non-numeric (Ammir results) Rico Physician) MCHC 33.6 g/dL Normal (applies to [facility] non-numeric (Ammir results) Rico Physician) RDW 13.5 % Normal (applies to [facility] non-numeric (Ammir results) Rico Physician) PLATELET COUNT 253 Normal (applies to [facility] Thous/mcL non-numeric (Ammir results) Rico Physician) MPV 8.3 fL Normal (applies to [facility] non-numeric (Ammir results) Rico Physician) ID Date Data Source [id number] 02/20/2018 12:00:00 AM EDT [facility] (Ammir Rico Physician) Name Value Range Interpretation Description Data Sup porting Code Source(s) Document(s ) Color of Yellow Normal (applies [facility] Peritoneal to non-numeric (Ammir dialysis fluid results) Rico Physician) Appearance of Clear Normal (applies [facility] Abdomen to non-numeric (Ammir results) Rico Physician) Specific gravity 1.011 Normal (applies [facility] of Pericardial to non-numeric (Ammir fluid by results) Rico Refractometry Physician) pH of Lower 6.5 Normal (applies [facility] respiratory to non-numeric (Ammir specimen results) Rico Physician) Glucose Negative Normal (applies [facility] [Mass/volume] in to non-numeric (Ammir Urine collected results) Rico for unspecified Physician) duration Bilirubin Negative Normal (applies [facility] [Presence] in to non-numeric (Ammir Peritoneal fluid results) Rico Physician) Ketones Negative Normal (applies [facility] [Presence] in to non-numeric (Ammir Blood by Tablet results) Rico Physician) OCCULT BLOOD Negative Normal (applies [facility] to non-numeric (Ammir results) Rico Physician) Protein Negative Normal (applies [facility] [Mass/volume] in to non-numeric (Ammir Lower results) Rico respiratory Physician) specimen Nitrite Negative Normal (applies [facility] [Presence] in to non-numeric (Ammir Urine by Test results) Rico strip Physician) WBC 0-5 Normal (applies [facility] to non-numeric (Ammir results) Rico Physician) Leukocyte Abnormal (applies [facility] esterase to non-numeric (Ammir [Presence] in results) Rico Body fluid by Physician) Automated test strip RBC None Seen Normal (applies [facility] to non-numeric (Ammir results) Rico Physician) SQUAMOUS 0-5 Normal (applies [facility] EPITHELIAL CELLS to non-numeric (Ammir results) Rico Physician) Bacteria Moderate Above high normal [facility] [Presence] in (Ammir Prostatic fluid Rico by Light Physician) microscopy HYALINE CAST None Seen Normal (applies [facility] to non-numeric (Ammir results) Rico Physician) ID Date Data Source [id number] 02/20/2018 12:00:00 AM EDT [facility] (Ammir Rico Physician) Name Value Range Interpretation Description Data Sup porting Code Source(s) Document(s ) VITAMIN B12 329 pg/mL Normal (applies to [facility] (A mmir non-numeric Rico results) Physician) FOLATE,SERUM 14.7 Normal (applies to [facility] ( Ammir ng/mL non-numeric Rico results) Physician) ID Date Data Source [id number] 02/20/2018 12:00:00 AM EDT [facility] (Ammir Rico Physician) Name Value Range Interpretation Code Description Data Jigna rce(s) Supporting Document(s ) BARBITURAT Negative Normal (applies to [facility] (Am rosa m ES,QL,URIN non-numeric Rico E results) Physician) AMPHETAMIN Negative Normal (applies to [facility] (Am rosa m ES,QL,URIN non-numeric Rico E results) Physician) BENZODIAZE Negative Normal (applies to [facility] (Am rosa m PINES,QL,U non-numeric Rico RINE results) Physician) COCAINE,QL Negative Normal (applies to [facility] (Am rosa m ,URINE non-numeric Rico results) Physician) METHAQUALO Negative Normal (applies to [facility] (Am rosa m NE,QL,URIN non-numeric Rico E results) Physician) METHADONE, Negative Normal (applies to [facility] (Am rosa m QL,URINE non-numeric Rico results) Physician) OPIATES,QL Negative Normal (applies to [facility] (Am ros am ,URINE non-numeric Rico results) Physician) PHENCYCLID Negative Normal (applies to [facility] (Am rosa m INE,QL,URI non-numeric Rico NE results) Physician) PROPOXYPHE Negative Normal (applies to [facility] (Am rosa m NE,QL,URIN non-numeric Rico E results) Physician) THC 50 Negative Normal (applies to [facility] (Amm ir URINE non-numeric Rico results) Physician) ID Date Data Source [id number] 02/20/2018 12:00:00 AM EDT [facility] (Ammir Rico Physician) Name Value Range Interpretation Code Description Data Jigna rce(s) Supporting Document(s ) ALCOHOL,E Negative Normal (applies to [facility] (Amm ir THYL,QL,U non-numeric Rico RINE results) Physician) ID Date Data Source [id number] 02/20/2018 12:00:00 AM EDT [facility] (Ammir Rico Physician) Name Value Range Interpretation Description Data Sup porting Code Source(s) Document(s ) Comment Normal (applies [facility] [Interpretation] to non-numeric (Ammir Left eye Narrative results) Rico Ophthalmometer Physician) ID Date Data Source [id number] 02/20/2018 12:00:00 AM EDT [facility] (Ammir Rico Physician) Name Value Range Interpretation Description Data Sup porting Code Source(s) Document(s ) VITAMIN 55 pg/mL Normal (applies to [facility] (Amm ir D,1,25 non-numeric Rico (OH)2,TOTAL results) Physician) VITAMIN D3, 55 pg/mL Normal (applies to [facility] (A mmir 1,25 (OH)2 non-numeric Rico results) Physician) VITAMIN D2, <8 Normal (applies to [facility] (A mmir 1,25 (OH)2 non-numeric Rico results) Physician) ID Date Data Source [id number] 02/20/2018 12:00:00 AM EDT [facility] (Ammir Rico Physician) Name Value Range Interpretation Description Data Sup porting Code Source(s) Document(s ) HB S AG Non Normal (applies [facility] Reactive to non-numeric (Ammir results) Rico Physician) HB CORE Non Normal (applies [facility] AB,TOTAL Reactive to non-numeric (Ammir results) Rico Physician) HEPATITIS BE Non-reactiv Normal (applies [facility] ANTIGEN e to non-numeric (Ammir results) Rico Physician) HEP B SURF AB <5 Below low normal [facility] IMMUNITY,QN (Ammir Rico Physician) HEPATITIS BE Non-reactiv Normal (applies [facility] ANTIBODY e to non-numeric (Ammir results) Rico Physician) ID Date Data Source [id number] 02/20/2018 12:00:00 AM EDT [facility] (Ammir Rico Physician) Name Value Range Interpretation Description Data Sup porting Code Source(s) Document(s ) CULTURE, TEST NOT Normal (applies to [facility] (Amm ir URINE,RO PERFORMED non-numeric Rico UTINE results) Physician) CULTURE, Normal (applies to [facility] (Amm ir URINE,RO non-numeric Rico UTINE results) Physician) Procedure Social History Code Duration Value Status Description Data Source(s ) Smoking 02/19/2020 Unknown if ever completed Unknown if ever [facility] EN (Ammir 12:00:00 AM EDT smoked smoked Rico Ph ysician) Smoking 02/19/2020 - Cigarettes: completed - Cigarettes: none [facility] (Ammir 12:00:00 AM EDT none - - Alcohol: 1 GLASS R sj Physician) Alcohol: 1 OF WINE WITH DINNER GLASS OF WINE WITH DINNER Vital Signs ID Date Data Source [id number] Name Value Range Interpretation Code Description Data Source(s) Body weight 160 lb 160 lb [facility] (Ammir Rico Physician) Systolic blood 120 mm[Hg] 120 mm[Hg] [facility] (Am rosa m pressure Rico Physician) Diastolic blood 80 mm[Hg] 80 mm[Hg] [facility] (A mmir pressure Rico Physician) Inhaled oxygen 97 % 97 % [facility] (Am rosa m concentration Rico Physician) Body temperature 98.1 F 98.1 F [facility] ( Ammir Rico Physician) Heart rate 78 /min 78 /min [facility] (Ammir Rico Physician) Systolic blood 134 mm[Hg] 134 mm[Hg] [facility] (Am rosa m pressure Rico Physician) Diastolic blood 80 mm[Hg] 80 mm[Hg] [facility] (A mmir pressure Rico Physician) Inhaled oxygen 98 % 98 % [facility] (Am rosa m concentration Rico Physician) Body temperature 98.3 F 98.3 F [facility] ( Ammir Rico Physician) Heart rate 84 /min 84 /min [facility] (Ammir Rico Physician) Body weight 162 lb 162 lb [facility] (Ammir Rico Physician) Systolic blood 160 mm[Hg] 160 mm[Hg] [facility] (Am rosa m pressure Rico Physician) Diastolic blood 90 mm[Hg] 90 mm[Hg] [facility] (A mmir pressure Rico Physician) Inhaled oxygen 99 % 99 % [facility] (Am rosa m concentration Rico Physician) Body temperature 98 F 98 F [facility] ( Ammir Rico Physician) Heart rate 70 /min 70 /min [facility] (Ammir Rico Physician) Systolic blood 132 mm[Hg] 132 mm[Hg] [facility] (Am rosa m pressure Rico Physician) Diastolic blood 80 mm[Hg] 80 mm[Hg] [facility] (A mmir pressure Rico Physician) Inhaled oxygen 99 % 99 % [facility] (Am rosa m concentration Rico Physician) Heart rate 76 /min 76 /min [facility] (Ammir Rico Physician) Body weight 157 lb 157 lb [facility] (Ammir Rico Physician) Systolic blood 140 mm[Hg] 140 mm[Hg] [facility] (Am rosa m pressure Rico Physician) Diastolic blood 80 mm[Hg] 80 mm[Hg] [facility] (A mmir pressure Rico Physician) Inhaled oxygen 96 % 96 % [facility] (Am rosa m concentration Rico Physician) Heart rate 73 /min 73 /min [facility] (Ammir Rico Physician) Body weight 157 lb 157 lb [facility] (Ammir Rico Physician) Systolic blood 122 mm[Hg] 122 mm[Hg] [facility] (Am rosa m pressure Rico Physician) Diastolic blood 68 mm[Hg] 68 mm[Hg] [facility] (A mmir pressure Rico Physician) Inhaled oxygen 98 % 98 % [facility] (Am rosa m concentration Rico Physician) Body temperature 98.4 F 98.4 F [facility] ( Ammir Rico Physician) Heart rate 65 /min 65 /min [facility] (Ammir Rico Physician) Body weight 157 lb 157 lb [facility] (Ammir Rico Physician) Systolic blood 122 mm[Hg] 122 mm[Hg] [facility] (Am rosa m pressure Rico Physician) Diastolic blood 68 mm[Hg] 68 mm[Hg] [facility] (A mmir pressure Rico Physician) Inhaled oxygen 98 % 98 % [facility] (Am rosa m concentration Rico Physician) Body temperature 98.4 F 98.4 F [facility] ( Ammir Rico Physician) Heart rate 65 /min 65 /min [facility] (Ammir Rico Physician) Systolic blood 134 mm[Hg] 134 mm[Hg] [facility] (Am rosa m pressure Rico Physician) Diastolic blood 70 mm[Hg] 70 mm[Hg] [facility] (A mmir pressure Rico Physician) Inhaled oxygen 98 % 98 % [facility] (Am rosa m concentration Rico Physician) Body temperature 98.4 F 98.4 F [facility] ( Ammir Rico Physician) Heart rate 80 /min 80 /min [facility] (Ammir Rico Physician) Body height 62 in 62 in [facility] (Ammir Rico Physician) Body weight 155 lb 155 lb [facility] (Ammir Rico Physician) Systolic blood 138 mm[Hg] 138 mm[Hg] [facility] (Am rosa m pressure Rico Physician) Diastolic blood 74 mm[Hg] 74 mm[Hg] [facility] (A mmir pressure Rico Physician) Body mass index 28.3 kg/m2 28.3 kg/m2 [facility] (A mmir (BMI) [Ratio] Rico Physician) Inhaled oxygen 98 % 98 % [facility] (Am rosa m concentration Rico Physician) Heart rate 71 /min 71 /min [facility] (Ammir Rico Physician) Body height 62 in 62 in [facility] (Ammir Rico Physician) Body weight 175 lb 175 lb [facility] (Ammir Rico Physician) Systolic blood 125 mm[Hg] 125 mm[Hg] [facility] (Am rosa m pressure Rico Physician) Diastolic blood 75 mm[Hg] 75 mm[Hg] [facility] (A mmir pressure Rico Physician) Body mass index 32 kg/m2 32 kg/m2 [facility] (A mmir (BMI) [Ratio] Rico Physician) Inhaled oxygen 97 % 97 % [facility] (Am rosa m concentration Rico Physician) Heart rate 75 /min 75 /min [facility] (Ammir Rico Physician)
[2020-02-29 16:22] VITALS: BMI 28.3
--- OUTSIDE RECORDS SUMMARY | 2020-03-05 05:00 | XMS ---
:1945 Author Organization [facility] Care Team Providers Name Role Phone NISHA PINO Unavailable Unavailable Rico, Ammir Unavailable [phone] Rico, [...] Ammir Unavailable [phone] Rico, Ammir Unavailable [phone] Re-disclosure Warning The records that you are [...] is protected by Article 27-F of the [facility] Public Health law. If you continue you may haveaccess to information: Regarding HIV / AIDS; Provided by facilities licensed or operated by the [facility] Office of Mental Health; or Provided by the [facility] Office for People With Developmental Disabilities. If such information is present, then the following [facility] mandated warning applies: This information has [...] law may result in a fine or care home sentence or both. A general authorization for the release of medical or other information is NOT sufficient authorization for further disclosure. Encounters Encounter Providers Location Date Indications Data Source(s ) Attender: Christianne 02/19/2020 [facility] (A mmir Rico 12:00:00 AM EDT Rico Ph ysician) Office Outpatient Attender: ALVAREZ01/19/2020 01:10:00 N39.0 [facility] NISHA FreireAdmitter: AM [facility] Health Care NISHA PINOReferrer: NISHA PINO N39.0 Outpatient Attender: ALVAREZ, 10/25/2019 06:37:00 N39.0 [facility] NISHA FreireAdmitter: PM EDT Health Care NISHA PINOo n TaniReferrer: NISHA PINO N39.0 Outpatient Attender: ALVAREZ, 10/25/2019 12:30:00 N39.0 [facility] NISHA FreireAdmitter: PM [facility] Care NISHA PINOo n Radha.Referrer: NISHA PINO N39.0 Immunizations Vaccine Date Status Description Data Source(s) Influenza, high dose 02/19/2020 completed [facility] (Ammir Rico seasonal 12:00:00 AM EDT Physician) New in 2011. IIV4 03/26/2019 completed [facility] (A mmir Rico 12:00:00 AM EST Physician) Medications Medication Brand Start Product Dose Route [facility] Indications Reaction Description Data Name Date Form Instructions Instructions Source(s) cetirizine ZYRTEC 11/05/ TABLET 30 complet ZYRTE C [facility] hydrochlori :64930 2019 ed (Ammir de 10 MG 26 12:00: Rico Oral Tablet 00 AM Physici an) [Zyrtec] EDT ZYRTEC:1020 026 Hydrocortis HYTONE 11/05/ OINTMENT 1 complet HY TONE [facility] one 0.025 :2019 ed (Ammir MG/MG 9 12:00: Rico Topical 00 AM Physician) Ointment EDT [Hytone] HYTONE:2062 Furosemide LASIX: 10/29/ TABLET 5 complet LASIX [facility] 40 MG Oral [id number] 1791 ed (Ammir Tablet 12:00: Rico [Lasix] 00 AM Physician) LASIX: EDT 9 valsartan DIOVAN 10/17/ TABLET 30 complet DIOVAN [facility] 40 MG Oral :85931 2019 ed (Ammir Tablet 4 12:00: Rico [...] 00 AM Physici an) [Synthroid] EDT LEVOTHYROXI [id number] Insurance Providers Payer name Policy type Policy ID Covered Covered republican's Policy P faraz / Coverage republican ID relationship to [employer] Inf ormation type weinberg BC INDEMNITY [id number] OT [id number] A[employer]NA [employer] SP [employer] MED[employer] BC PPO [id number] HU [id number] A[employer]NA [employer] SP [employer] MEDIC[employer] BC PPO [id number] HU [id number] INDEMNITY [id number] HU [id number] [employer] SP [employer] MEDICARE BC PPO [id number] SP [id number] Problems, Conditions, and Diagnoses Code Display Name Description Problem Type Effective Data Sour ce(s) Dates R94.39 Abnormal result of ABNORMAL RESULT OF Problem 0 [facility] (Ammir other OTHER 12:00:00 AM Rico cardiovascular CARDIOVASCULAR EDT Physic jim) function study FUNCTION STUDY R10.13 Epigastric pain EPIGASTRIC PAIN Problem 11/06/2019 [facility] (Ammir 12:00:00 AM Rico EDT Physician) M25.551 Pain in right hip PAIN IN RIGHT HIP Problem 11/06/2019 [facility] (Ammir 12:00:00 AM Rico EDT Physician) L30.9 Dermatitis, DERMATITIS, Problem 11/06/2019 [facility] (Ammi r unspecified UNSPECIFIED 12:00:00 AM Rico EDT Physician) R51 Headache HEADACHE Problem 11/06/2019 [facility] (Ammir 12:00:00 AM Rico EDT Physician) W57.XXXA Bitten or stung by BITTEN OR STUNG BY Problem 0 [facility] (Ammir nonvenomous insect NONVENOMOUS INSECT 12:00:00 AM Rico and other AND OTHER EDT Physician) nonvenomous NONVENOMOUS arthropods, ARTHROPODS, initial encounter INITIAL ENCOUNTER Z91.81 History of falling HISTORY OF FALLING Problem 0 [facility] (Ammir 12:00:00 AM Rico EDT Physician) R06.00 Dyspnea, DYSPNEA, Problem 10/30/2019 [facility] (Ammir unspecified UNSPECIFIED 12:00:00 AM Rico EDT Physician) Z09 Encounter for ENCOUNTER FOR Problem 10/30/2019 [facility] ( Ammir follow-up FOLLOW-UP 12:00:00 AM Rico examination after EXAMINATION AFTER EDT Physician) completed COMPLETED treatment for TREATMENT FOR conditions other CONDITIONS OTHER than malignant THAN MALIGNANT neoplasm NEOPLASM K21.9 Gastro-esophageal GASTRO-ESOPHAGEAL Problem 10/30/2019 [facility] (Ammir reflux disease REFLUX DISEASE 12:00:00 AM Rabad i without WITHOUT EDT Physician) esophagitis ESOPHAGITIS I51.7 Cardiomegaly CARDIOMEGALY Problem 10/30/2019 [facility] (Am rosa m 12:00:00 AM Rico EDT Physician) I50.9 Heart failure, HEART FAILURE, Problem 10/30/2019 [facility] (Ammir unspecified UNSPECIFIED 12:00:00 AM Rico EDT Physician) R07.9 Chest pain, CHEST PAIN, [...] Problem 05/17/2019 [facility] ( Ammir infection, site INFECTION, SITE 12:00:00 AM Rab jad not specified NOT SPECIFIED EST Physicia n) R82.81 PYURIA PYURIA Problem 05/17/2019 [facility] (Ammir 12:00:00 AM Rico EST Physician) R53.82 Chronic fatigue, CHRONIC FATIGUE, Problem 05/09/2019 [facility] (Ammir unspecified UNSPECIFIED 12:00:00 AM Rico EST Physician) Z23 Encounter for ENCOUNTER FOR Problem 03/26/2019 [facility] ( Ammir immunization IMMUNIZATION 12:00:00 AM Rico EST Physician) N39.0 Urinary tract URINARY TRACT Diagnosis 01/19/2020 [facility] infection, site INFECTION, SITE 01:10:00 AM [facility] not specified NOT SPECIFIED EDT [facility] Surgeries/Procedures Procedure Description Date [...] AM EDT P hysician) Medication Reconciliation 05/17/2019 [facility] (Ammir Rico (procedure) 12:00:00 AM EST [...] medications (procedure) 12:00:00 AM EST P hysician) Results ID Date Data Source [id number] 02/29/2020 08:45:00 AM EDT [facility] Name Value Range Interpretation Description Data Sup porting Code Source(s) Document(s ) SARS [facility] coronavirus 2 RNA This lab was ordered by [facility] and reported by [facility]. ID Date Data Source [id number] 01/25/2020 11:05:00 AM EDT [facility] Name Value Range Interpretation Description Data Sup porting Code Source(s) Document(s ) SARS [facility] coronavirus 2 RNA This lab was ordered by [facility] and reported by [facility]. ID Date Data Source [id number] 11/06/2019 12:00:00 AM EDT [facility] (Ammir Rico Physician) Name Value Range Interpretation Code Description Data Jigna rce(s) Supporting Document(s ) LYME TOTAL 0.1 Normal (applies to [facility] (Am rosa m IGG/IGM non-numeric results) Rico Physician) ID Date Data Source [id number] 11/06/2019 12:00:00 AM EDT [facility] (Ammir Rico [...] results) Rico Physician) ID Date Data Source [id number] 11/06/2019 12:00:00 AM EDT [facility] (Ammir Rico [...] results) Physician) WAL[place]UT <0.10 Normal (applies to [facility] (Amm ir (F256) IGE non-numeric Rico results) Physician) SALMON (F41) <0.10 Normal (applies to [facility] ( Ammir IGE non-numeric Rico results) Physician) TUNA (F40) <0.10 Normal (applies to [facility] (Am rosa m IGE non-numeric Rico results) Physician) HAZELNUT(F17 <0.10 Normal (applies to [facility] ( Ammir ) IGE non-numeric Rico results) Physician) CASHEW <0.10 Normal (applies to [facility] (Amm ir NUT(F202) non-numeric Rico IGE results) Physician) ALMOND <0.10 Normal (applies to [facility] (Amm ir (F20)IGE non-numeric Rico results) Physician) ID Date Data Source [id number] 10/30/2019 10:17:00 AM EDT [facility] Name Value Range Interpretation Code Description Data Jigna rce(s) Supporting Document(s ) SARS-COV-2 [facility] This lab was ordered by [employer] and reported by [facility]. ID Date Data Source [id number] 10/30/2019 12:00:00 AM EDT [facility] (Ammir Rico Physician) Name Value Range Interpretation Description Data Sup porting Code Source(s) Document(s ) SARS-COV- Not Detected Normal (applies to [facility] ( Ammir 2 non-numeric Rico results) Physician) ID Date Data Source [id number] 10/19/2019 12:00:00 AM EDT [facility] (Ammir Rico Physician) Name Value Range Interpretation Code Description Data Jigna rce(s) Supporting Document(s ) TROPONIN I <0.01 Normal (applies to [facility] (Am rosa m non-numeric results) Rico Physician) ID Date Data Source [id number] 10/19/2019 12:00:00 AM EDT [facility] (Ammir Rico Physician) Name Value Range Interpretation Description Data Sup porting Code Source(s) Document(s ) TSH,3RD 2.05 Normal (applies to [facility] GENERATION uIU/mL non-numeric (Ammir results) Rico Physician) T4 FREE, 1.37 Normal (applies to [facility] THYROXINE ng/dL non-numeric (Ammir results) Rico Physician) ID Date Data Source [id number] 10/19/2019 12:00:00 AM EDT [facility] (Ammir Rico [...] EGFR NON AFR 104 Normal (applies [facility] [place] mL/min/1 to non-numeric (Ammir .73m2 results) Rico Physician) EGFR AFR 125 Normal (applies [facility] [place] mL/min/1 to non-numeric (Ammir .73m2 results) Rico Physician) ID Date Data Source [id number] 10/19/2019 12:00:00 AM EDT [facility] (Ammir Rico Physician) Name Value Range Interpretation Description Data Sup porting Code Source(s) Document(s ) Hemoglobin A1c 5.2 % Normal (applies to [facility] (Ammir in Blood non-numeric Rico results) Physician) ID Date Data Source [id number] 10/19/2019 12:00:00 AM EDT [facility] (Ammir Rico [...] results) Rico Physician) ID Date Data Source [id number] 10/19/2019 12:00:00 AM EDT [facility] (Ammir Rico [...] results) Rico Physician) ID Date Data Source [id number] 05/17/2019 12:00:00 AM EST [facility] (Ammir Rico Physician) Name Value Range Interpretation Description Data Sup porting Code Source(s) Document(s ) ORGANISM Abnormal (applies [facility] to non-numeric (Ammir results) Rico Physician) Comment Normal (applies [facility] [Interpretation] to non-numeric (Ammir Left eye Narrative results) Rico Ophthalmometer Physician) ID Date Data Source [id number] 05/17/2019 12:00:00 AM EST [facility] (Ammir Rico [...] results) Rico Physician) ID Date Data Source [id number] 05/09/2019 12:00:00 AM EST [facility] (Ammir Rico [...] (applies [facility] mg/dL to non-numeric (Ammir results) Irco Physician) TOTAL PROTEIN 7.1 g/dL Normal (applies [...] EGFR NON AFR 104 Normal (applies [facility] [place] mL/min/1 to non-numeric (Ammir .73m2 results) Rico Physician) EGFR AFR 126 Normal (applies [facility] [place] mL/min/1 to non-numeric (Ammir .73m2 results) Rico Physician) ID Date Data Source [id number] 05/09/2019 12:00:00 AM EST [facility] (Ammir Rico [...] (applies [facility] 10(3)/uL to non-numeric (Ammir results) Rcio Physician) Neutrophil Abs 3.11 Normal (applies [facility] [...] results) Rico Physician) ID Date Data Source [id number] 05/09/2019 12:00:00 AM EST [facility] (Ammir Irco Physician) Name Value Range Interpretation Code Description Data Jigna rce(s) Supporting Document(s ) IRON, 78 ug/dL Normal (applies to [facility] (Amm ir TOTAL non-numeric Rico results) Physician) ID Date Data Source [id number] 05/09/2019 12:00:00 AM EST [facility] (Ammir Rico [...] (Ammir Rico Physician) ID Date Data Source [id number] 05/09/2019 12:00:00 AM EST [facility] (Ammir Rico [...] results) Rico Physician) ID Date Data Source [id number] 05/09/2019 12:00:00 AM EST [facility] (Ammir Rico Physician) Name Value Range Interpretation Description Data Sup porting Code Source(s) Document(s ) Ferritin 219.2 Normal (applies to [facility] (Amm ir [Interpretat ng/mL non-numeric Rico ion] in results) Physician) Blood ID Date Data Source [id number] 05/09/2019 12:00:00 AM EST [facility] (Ammir Rico Physician) Name Value Range Interpretation Description Data Sup porting Code Source(s) Document(s ) T4 FREE, 1.52 Normal (applies to [facility] THYROXINE ng/dL non-numeric (Ammir results) Rico Physician) TSH,3RD 1.18 Normal (applies to [facility] GENERATION uIU/mL non-numeric (Ammir results) Rico Physician) ID Date Data Source [id number] 05/09/2019 12:00:00 AM EST [facility] (Ammir Rico [...] [facility] to non-numeric (Ammir results) Rico Physician) Procedure Social History Code Duration Value [...]
[2020-03-05 08:38] VITALS: TEMP 97.5
[2020-03-05 08:53] VITALS: PULSE 70
[2020-03-05 09:27] VITALS: BP 139/72
--- NOTE | 2020-03-06 18:03 | PATH ---
Surgical Pathology Report Patient Name: ANTOINE CASTILLO [facility]. Rec. #: [id number] /Age/Gender: 1945 (Age: 74) / F Account: [id number] Location: U-ENDOSCOPY Taken: 03/05/2020 Received: 03/05/2020 Reported: 03/06/2020 Physicians: Tamara Abrams M.D. Specimen(s) Received A: BULB AND SECOND PORTION OF DUODENUM B: GASTRIC FUNDUS POLYPS C: GASTRIC ANTRUM D: EG-JUNCTION Clinical History Dyspepsia, chest pain, diminished appetite Postoperative diagnosis: Gastric polyps, atrophic gastritis Final Diagnosis A. BULB AND SECOND PORTION OF DUODENUM, BIOPSY: DUODENAL MUCOSA WITH NO SIGNIFICANT PATHOLOGIC CHANGE. NO HISTOLOGIC EVIDENCE OF INTRAEPITHELIAL LYMPHOCYTOSIS. B. GASTRIC FUNDUS, POLYPS, POLYPECTOMY: FRAGMENTS OF FUNDIC GLAND POLYP AND GASTRIC HYPERPLASTIC POLYP. IMMUNOSTAIN FOR H. PYLORI IS NEGATIVE. C. GASTRIC ANTRUM, BIOPSY: GASTRIC MUCOSA WITH CHRONIC GASTRITIS. IMMUNOSTAIN FOR H. PYLORI IS NEGATIVE. NEGATIVE FOR INTESTINAL METAPLASIA. D. EG JUNCTION, BIOPSY: GASTROESOPHAGEAL JUNCTIONAL MUCOSA WITH REFLUX ESOPHAGITIS. NEGATIVE FOR INTESTINAL METAPLASIA. Electronically Signed Rika Blum M.D. Gross Description A. Received in formalin, labeled "biopsy bulb and second portion of duodenum" are 4 rossi, irregular portions of soft tissue ranging from 0.2-0.3 cm. in greatest dimension. The specimens are submitted in toto in one cassette. B. Received in formalin, labeled "biopsy gastric fundus polyp" are 6 rossi, irregular portions of soft tissue ranging from 0.1-0.3 cm. in greatest dimension. The specimens are submitted in toto in one cassette. C. Received in formalin, labeled "biopsy gastric antrum" are 4 rossi, irregular portions of soft tissue ranging from 0.2-0.4 cm. in greatest dimension. The specimens are submitted in toto in one cassette. D. Received in formalin, labeled "biopsy GE junction" are 4 rossi, irregular portions of soft tissue ranging from 0.3-0.5 cm. in greatest dimension. The specimens are submitted in toto in one cassette. DL/03/05/2020 saudi/03/05/2020
== END 2020-03-05 09:26 | disposition home or self-care (01) ==
LOC: JASU-ENDO 04:56
PROVIDERS: ATTEND Internal Medicine Gastroenterology
PROC: 0DB68ZX Excision of Stomach, Via Natural or Artificial Opening Endoscopic, Diagnostic (ICD-10-PCS; 2020-03-05)
PROC: 0DB38ZX Excision of Lower Esophagus, Via Natural or Artificial Opening Endoscopic, Diagnostic (ICD-10-PCS; 2020-03-05)
PROC: 0DB98ZX Excision of Duodenum, Via Natural or Artificial Opening Endoscopic, Diagnostic (ICD-10-PCS; principal; 2020-03-05 08:00)
DX: K29.50 Unspecified chronic gastritis without bleeding (principal); K21.00 Gastro-esophageal reflux disease with esophagitis, without bleeding; K31.7 Polyp of stomach and duodenum; R10.13 Epigastric pain; R07.89 Other chest pain
CPT/HCPCS: 88305-TC; 88342-TC

== ENCOUNTER 2021-08-11 00:49 | Emergency (ER) | payer BC, OTHER ==
[2021-08-11 00:56] VITALS: TEMP 97.6; BMI 28.8
[2021-08-11] MEDS ORDERED: ONDANSETRON 4 MG/2 ML VIAL IVPUSH STA (01:14)
[2021-08-11] MEDS ORDERED: MECLIZINE HCL 25 MG TABLET (FP) PO ONE ×2 (01:16→03:05)
[2021-08-11] MEDS ORDERED: ONDANSETRON 4 MG/2 ML VIAL ONE (01:33)
[2021-08-11] MEDS ORDERED: MECLIZINE HCL 25 MG TABLET (FP) ONE ×2 (01:34→03:09)
[2021-08-11 02:03] VITALS: BP 150/63; PULSE 76
[2021-08-11 02:30] LABS: EOS % 2.7 % (0-4.5); HEMATOCRIT 37.6 % (32.4-45.2); LYMPH % 30.4 % (8-40); MCH 30.6 pg (25.7-33.7); MCHC 34.5 g/dl (32.0-36.0); MEAN CELL VOLUME 88.6 fl (80-96); MEAN PLT VOLUME 7.7 fl (7.5-11.1); MONO % 6.8 % (3.8-10.2); NEUT % 59.1 % (42.8-82.8); PLATELET COUNT 270 10^3/uL (134-434); RBC 4.24 M/mm3 (3.60-5.2); RDW 12.6 % (11.6-15.6); WHITE BLOOD COUNT 6.4 K/mm3 (4.0-10.0)
[2021-08-11 02:36] LABS: INR 1.01 (0.83-1.09); PROTHROMBIN TIME (PATIENT) 11.6 SEC (9.7-13.0)
[2021-08-11 02:39] LABS: ACTIVATED PTT 30.7 SECONDS (25.2-36.5)
[2021-08-11 02:50] LABS: CALCIUM 8.9 mg/dL (8.5-10.1)
[2021-08-11 02:51] LABS: BLOOD UREA NITROGEN 15.2 mg/dL (7-18)
[2021-08-11 02:54] LABS: CREATININE 0.7 mg/dL (0.55-1.3)
[2021-08-11 02:56] LABS: BILIRUBIN,TOTAL 0.3 mg/dL (0.2-1); TOT PROT 7.8 g/dl (6.4-8.2)
[2021-08-11 14:13] LABS: EPI CELLS >36 /uL (0-25.1); HYALINE CASTS 0 /uL (0-3.1); PH,URINE 6.5 (5.0-8.0); URINE APPEARANCE CLEAR; URINE BACTERIA 127 /uL (0-1359); URINE BILIRUBIN NEGATIVE (NEGATIVE); URINE COLOR YELLOW; URINE GLUCOSE (UA) NEGATIVE (NEGATIVE); URINE KETONE NEGATIVE (NEGATIVE); URINE LEUK ESTERASE 2+ (NEGATIVE); URINE NITRITE NEGATIVE (NEGATIVE); URINE PROTEIN NEGATIVE (NEGATIVE); URINE RBC 22 /uL (0-23.9); URINE UROBILINOGEN 0.2 mg/dL (0.2-1.0); URINE WBC 28 /uL (0-25.8)
== END 2021-08-11 04:00 | disposition home or self-care (01) ==
LOC: FER 00:49
PROC: 3E033GC Introduction of Other Therapeutic Substance into Peripheral Vein, Percutaneous Approach (ICD-10-PCS; principal; 2021-08-11)
DX: R55 Syncope and collapse (principal)
CPT/HCPCS: 36415; 70450-TC; 80053; 81003; 85025; 85610; 85730; 86850; 86900; 86901; 93005; 99291; C9803-CS; U0003; U0005

== ENCOUNTER 2024-07-13 05:30 | Day surgery (SDC) | payer OTHER, BC ==
[2024-07-11 12:35] VITALS: BMI 29.2
[2024-07-13 08:35] VITALS: TEMP 97.9
[2024-07-13 09:11] VITALS: BP 130/57; PULSE 79; RESP 14
== END 2024-07-13 09:32 | disposition home or self-care (01) ==
LOC: JASU-ENDO 05:30
PROVIDERS: ATTEND Student in an Organized Health Care Education/Training Program
PROC: 0DB78ZX Excision of Stomach, Pylorus, Via Natural or Artificial Opening Endoscopic, Diagnostic (ICD-10-PCS; 2024-07-13)
PROC: 0DB68ZX Excision of Stomach, Via Natural or Artificial Opening Endoscopic, Diagnostic (ICD-10-PCS; 2024-07-13)
PROC: 0DB28ZX Excision of Middle Esophagus, Via Natural or Artificial Opening Endoscopic, Diagnostic (ICD-10-PCS; 2024-07-13)
PROC: 0DB38ZX Excision of Lower Esophagus, Via Natural or Artificial Opening Endoscopic, Diagnostic (ICD-10-PCS; principal; 2024-07-13 08:00)
DX: K21.00 Gastro-esophageal reflux disease with esophagitis, without bleeding (principal); K29.50 Unspecified chronic gastritis without bleeding
CPT/HCPCS: 88305-TC; 88342-TC